=== PATIENT | male | born 1945 | race Caucasian/White ===

== ENCOUNTER 2018-10-17 10:57 | Inpatient (IN) | payer OTHER, BC ==
[2018-10-17 11:06] VITALS: BMI 40.1
--- NOTE | 2018-10-17 11:54 | PDOC ---
History of Present Illness - General Chief Complaint: Cold Symptoms Stated Complaint: COUGHING BLOOD (PCP SENT) Time Seen by Provider: 10/17/18 11:32 History Source: Patient - History of Present Illness Initial Comments: 10/17/18 11:59 The patient is a 73 year old male with a PMH of esophageal CA (s/p endoscopic resection), [place] Cell CA (s/p radiation 3-1/2 years previous) presents to our ED c/o 5 day h/o hemoptysis. C/o associated gurgling. Temperature (101) last night. CXR ordered by PMD (Dr. Thornton on Sunday) showed no active PNA. As patient continued to cough up blood PMD indicated patient should come to the ED. Surgical: endoscopic esophageal CA resection Allergy:Clindamycin (rash), NSAIDs (rash) PMD: Dr. Thornton Past History - Past Medical History Allergies/Adverse Reactions: Allergies Allergy/AdvReac Type Severity Reaction Status Date / Time clindamycin Allergy Verified 03/13/14 11:06 ibuprofen [From Motrin] Allergy Verified 03/13/14 11:10 naproxen sodium [From Aleve] Allergy Verified 03/13/14 11:08 NSAIDS (Non-Steroidal Allergy Verified 03/13/14 11:11 Anti-Inflamma Home Medications: Ambulatory Orders Ca/D3/Mag Ox/Zinc/Malware Analyst/Kartik/Bor [Caltrate 600+D Plus Tab Chew] 1 each PO ASDIR Cholecalciferol (Vitamin D3) [Vitamin D3] 1,000 unit PO DAILY 03/13/14 Fenofibrate 160 mg PO DAILY 03/13/14 Multivit-Min/FA/Lycopene/Lut [Centrum Silver Tablet] 1 each PO DAILY 03/13/14 [place]-3 Acid Ethyl Esters [Lovaza -] 2,000 mg PO BID 03/13/14 Omeprazole [Prilosec (RX)] 20 mg PO BID 03/13/14 Rivaroxaban [Xarelto -] 20 mg PO DAILY 03/13/14 Tramadol HCl 50 mg PO ASDIR 03/13/14 Zolpidem Tartrate 10 mg PO ASDIR 03/13/14 Atorvastatin Ca [Lipitor] 40 mg PO HS 10/17/18 Levothyroxine [Synthroid -] 150 mcg PO DAILY 10/17/18 Metoprolol Succinate [Toprol Xl] 100 mg PO BID 10/17/18 Anemia: No Asthma: No Cancer: Yes (ESOPHAGEAL TUMOR) Cardiac Disorders: Yes CVA: No COPD: No CHF: No Dementia: No Diabetes: No GI Disorders: No Disorders: No HTN: Yes Hypercholesterolemia: Yes Liver Disease: No Seizures: No Thyroid Disease: No - Surgical History Abdominal Surgery: No Appendectomy: No Cardiac Surgery: Yes (ABLATION,CARDIOVERSION) Cholecystectomy: No Lung Surgery: No Neurologic Surgery: No Orthopedic Surgery: Yes (JARETH KNEE SURGERY) - Immunization History Immunization Up to Date: Yes - Suicide/Smoking/Psychosocial Hx Smoking History: Former smoker Have you smoked in the past 12 months: No If you are a former smoker, when did you quit?: 40YRS Information on smoking cessation initiated: No Hx Alcohol Use: No Drug/Substance Use Hx: No Review of Systems - Review of Systems Constitutional: No: Chills, Fever HEENTM: No: Recent change in vision Respiratory: Yes: Hemoptysis. No: Shortness of Breath, Wheezing Cardiac (ROS): No: Chest Pain, Lightheadedness, Palpitations, Syncope ABD/GI: No: Constipated, Diarrhea, Nausea, Vomiting *Physical Exam - Vital Signs Last Vital Signs Temp Pulse Resp BP Pulse Ox 98.1 F 80 16 158/79 96 10/17/18 11:00 10/17/18 11:00 10/17/18 11:00 10/17/18 11:00 10/17/18 11:00 - Physical Exam Comments: 10/17/18 18:41 GENERAL: Awake, alert, and fully oriented, in no acute distress EYES: PERRLA, EOMI, sclera anicteric, conjunctiva clear ENT: Auricles normal inspection, hearing grossly normal, nares patent, oropharynx clear without exudates. Moist mucosa NECK: Normal ROM, supple, no lymphadenopathy, JVD, or masses LUNGS: Breath sounds equal, clear to auscultation bilaterally. No wheezes, and no crackles HEART: Regular rate and rhythm, normal S1 and S2, no murmurs, rubs or gallops ABDOMEN: Soft, nontender, normoactive bowel sounds. No guarding, no rebound. No masses Moderate Sedation - Procedure Monitoring Vital Signs: Procedure Monitoring Vital Signs Temperature 98.1 F 10/17/18 11:00 Pulse Rate 80 01/03/19 11:00 Respiratory Rate 16 10/17/18 11:00 Blood Pressure 158/79 10/17/18 11:00 O2 Sat by Pulse Oximetry (%) 96 10/17/18 11:00 ED Treatment Course - LABORATORY CBC & Chemistry Diagram: 10/17/18 12:15 10/17/18 12:15 Medical Decision Making - Medical Decision Making 10/17/18 12:03 73 year old male with significant PMH of esophageal CA, [place] cell CA presents w/5 day h/o hemoptysis. H/o low grade temperature yesterday. VS unremarkable. Lungs CLTA B/L Frontal diagnosis: PNA, bronchitis, blood vessel , less likely mets, PE, CHF. Will obtain CTA, labs. Reassess 10/17/18 12:41 Cr 0.[address] 10/17/18 17:34 CT shows RUL consolidation Patient reassessed @ bedside VSS Will start on Vanc/Zoysyn, also consider TB in differential given patient's h/o immunocompromise Isolation precautions Case d/w Jeannie Allen NP; Patient admitted to Dr. aGnnon for further evaluation *DC/Admit/Observation/Transfer Diagnosis at time of Disposition: Hemoptysis - Referrals - Patient Instructions - Post Discharge Activity
[2018-10-17 12:20] LABS: BASO % 0.4 % (0-2.0); EOS % 0.1 % (0-4.5); HEMATOCRIT 39.6 % (35.4-49); HEMOGLOBIN 13.6 GM/dL (11.7-16.9); LYMPH % 4.6 % (8-40); MCH 30.6 pg (25.7-33.7); MCHC 34.3 g/dl (32.0-35.9); MEAN CELL VOLUME 89.4 fl (80-96); MEAN PLT VOLUME 8.4 fl (7.5-11.1); MONO % 7.1 % (3.8-10.2); NEUT % 87.8 % (42.8-82.8); PLATELET COUNT 203 K/MM3 (134-434); RBC 4.43 M/mm3 (4.00-5.60); RDW 15.1 % (11.9-15.9); WHITE BLOOD COUNT 10.3 K/mm3 (4.0-10.0)
[2018-10-17 12:31] LABS: INR 1.78 (0.83-1.09); PROTHROMBIN TIME (PATIENT) 21.1 SEC (9.7-13.0)
[2018-10-17 12:33] LABS: ACTIVATED PTT 37.4 SECONDS (25.2-36.5)
[2018-10-17 12:40] LABS: ALBUMIN 2.9 g/dl (3.4-5.0); ALK PHOS 60 U/L (45-117); ANION GAP 8 MMOL/L (8-16); BLOOD UREA NITROGEN 15 mg/dL (7-18); CALCIUM 8.1 mg/dL (8.5-10.1); CHLORIDE 105 mmol/L (98-107); CO2 25 mmol/L (21-32); CREATININE 0.9 mg/dL (0.55-1.3); GLUCOSE,RANDOM 135 mg/dL (74-106); POTASSIUM 3.9 mmol/L (3.5-5.1); SGOT/AST 20 U/L (15-37); SGPT/ALT 17 U/L (13-61); SODIUM 138 mmol/L (136-145); TOT PROT 6.2 g/dl (6.4-8.2)
--- NOTE | 2018-10-17 12:46 | PDOC ---
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 Patient notes he began coughing up bright red blood five days ago. Patient reports associated gurgling with coughing. He notes he followed up with Dr. Thornton 4 days ago, and his chest X-Ray was negative. Patient reports having a 101.5 fever last night, which prompted his visit to the ED. The patient denies chest pain, shortness of breath, headache and dizziness. Denies fever, chills, nausea, vomit, diarrhea and constipation. Denies dysuria, frequency, urgency and hematuria. Allergies: Clindamycin (rash), NSAIDS (rash) Past surgical history: Endoscopic esophageal CA resection Social history: No reported PCP: Dr. Thornton 10/17/18 12:48 - Physicial Exam PE: GENERAL: Awake, alert, and fully oriented, in no acute distress HEAD: No signs of trauma EYES: PERRLA, EOMI, sclera anicteric, conjunctiva clear ENT: Auricles normal inspection, hearing grossly normal, nares patent, oropharynx clear without exudates. Moist mucosa NECK: Normal ROM, supple, no lymphadenopathy, JVD, or masses LUNGS: Breath sounds equal, clear to auscultation bilaterally. No wheezes, and no crackles HEART: Regular rate and rhythm, normal S1 and S2, no murmurs, rubs or gallops ABDOMEN: Soft, nontender, normoactive bowel sounds. No guarding, no rebound. No masses EXTREMITIES: Normal range of motion, no edema. No clubbing or cyanosis. No cords, erythema, or tenderness NEUROLOGICAL: Cranial nerves II through XII grossly intact. Normal speech, normal gait SKIN: Warm, Dry, normal turgor, no rashes or lesions noted. 10/17/18 12:48 - Medical Decision Making EXAM#: TYPE/EXAM: RESULT: [id number] CT/CHEST CT WITH CONTRAST IMPRESSION: Extensive right lung consolidation, most marked within the upper lobe, concerning for acute pneumonia. Clinical correlation and follow-up recommended. Please see above discussion. Reported By: Alfred Zarate MD 10/17/18 14:14 Documentation prepared by DAMIAN Gloria, acting as medical imaging specialist for Doc Kwon MD. 10/17/18 12:48 <Whitney Lomeli - Last Filed: 10/17/18 14:23> - Resident Resident Name: Cathryn Bryant - ED Attending Attestation I have performed the following: I have examined & evaluated the patient, The case was reviewed & discussed with the resident, I agree w/resident's findings & plan, Exceptions are as noted - Medical Decision Making 10/17/18 12:46 A portion of this note was documented by scribe services under my direction. I have reviewed the details of the note, within reason, and agree with the documentation with the following case summary and management plan written by me. Patient treated in the ED. Nursing notes are reviewed and incorporated into the medical decision-making. Vital signs reviewed. Peripheral IV access obtained by the nurse, laboratory studies are drawn and sent, reviewed and interpreted by myself. Vital Signs Temp Pulse Resp BP Pulse Ox 98.1 F 80 16 158/79 96 10/17/18 11:00 10/17/18 11:00 10/17/18 11:00 10/17/18 11:00 10/17/18 11:00 73-year-old male with history of esophageal cancer status post endoscopic resection, [place] cell cancer status post radiation, atrial fibrillation status post ablation currently on xarelto presents with hemoptysis. For approximately 4 days, the patient has had persistent liquidy hemoptysis but no chest pain or shortness of breath or fevers. The patient currently is taking the anticoagulants. Patient did noted temperature 101 degrees last night. The patient's primary care physician has been attempting to manage as an outpatient but eventually convince the patient to come to the ER for CAT scan admission to the hospital. Given his complex medical history, differential close bronchitis, pneumonia, vessel bleeding, malignancy, pulmonary embolism, pulmonary mass, congestive heart failure. We'll obtain labs and a CAT scan the chest and admit the patient to hospital for further outpatient management. Patient's currently breathing with no difficulty. 10/17/18 14:33 CBC, BMP 10/17/18 12:15 10/17/18 12:15 CMP Sodium 138 mmol/L (136-145) 10/17/18 12:15 Potassium 3.9 mmol/L (3.5-5.1) 10/17/18 12:15 Chloride 105 mmol/L (98-107) 10/17/18 12:15 Carbon Dioxide 25 mmol/L (21-32) 10/17/18 12:15 Anion Gap 8 MMOL/L (8-16) 10/17/18 12:15 BUN 15 mg/dL (7-18) 10/17/18 12:15 Creatinine 0.9 mg/dL (0.55-1.3) 10/17/18 12:15 Creat Clearance w eGFR > 60 (>60) 10/17/18 12:15 Random Glucose 135 mg/dL (74-106) H 10/17/18 12:15 Calcium 8.1 mg/dL (8.5-10.1) L 10/17/18 12:15 Total Bilirubin 1.0 mg/dL (0.2-1) 10/17/18 12:15 AST 20 U/L (15-37) 10/17/18 12:15 ALT 17 U/L (13-61) 10/17/18 12:15 Alkaline Phosphatase 60 U/L (45-117) 10/17/18 12:15 Total Protein 6.2 g/dl (6.4-8.2) L 10/17/18 12:15 Albumin 2.9 g/dl (3.4-5.0) L 10/17/18 12:[address] shows Right upper lobe PNA. Will treat with vanc and zosyn. R/o TB. Dr. Martin consulted and is aware of the patient. Admit on TB isolation precautions. <Doc Kwon - Last Filed: 10/17/18 18:09> Heart Score/ECG Review #1 ECG reviewed & interpreted by me at: 14:20 10/17/18 18:09 NSR 67, left axis deviation, no std/laan, normal intervals, QTC 479 msec <Doc Kwon - Last Filed: 10/17/18 18:09>
[2018-10-17] MEDS ORDERED: VANCOMYCIN 1,000 MG in DEXTROSE 5%-WATER - 250 ML IVPB ONE (14:18)
[2018-10-17] MEDS ORDERED: PIPERACILLIN/TAZOB 4.5 GM 4.5 GM in DEXTROSE 5%-WATER 100 ML IVPB ONE (14:19)
--- NOTE | 2018-10-17 15:27 | HP ---
Admitting History and Physical - Primary Care Physician PCP: Vega Thornton - Admission Chief Complaint: hemoptysis History of Present Illness: 73 year old male pmh of HTN,HLD, CAD, dCHF, atrial fibrillation, [place] cell ca s/p xrt/resection, gastric adenocarcinoma s/p resection presents with 5 day history of hemoptysis. Pt reports onset of intermittent productive cough w/ blood tinged sputum since Sunday, pt saw PCP on Sunday, chest xray w/out significant findings at that time. Pt states he was feeling better for a day until the cough recurred. Pt reports continued hemoptysis with accompanying fever,chills, and pleurisy. His temp this am 101f for which he took Tylenol. reports hearing gurgling upper airway sounds. He reports chronic night sweats x 10 years. Pt denies any sick contacts, reports his dog also has cough and has been sick. [place] [facility] [place] and his recent PET scan was neg. He denies any chest pain, sob, lightheadedness, unilateral weakness, dysphagia, dysuria, abdominal pain, n/v/d, recent travel, recent medication change History Source: Patient, Significant Other, Medical Record Limitations to Obtaining History: No Limitations - Past Medical History Cardiovascular: Yes: AFIB, Aneurysm (ascending aorta 3.9cm), CAD, CHF, HTN, Hyperlipdemia Pulmonary: Yes: Other (RLL nodule 8mm, s/p biopsy [place] [facility] Renal/: Yes: Renal Inusuff, BPH Psych: Yes: Anxiety Musculoskeletal: Yes: Chronic low back pain, Osteoarthritis Endocrine: Yes: Hypothyroidism Dermatology: Yes: Melanoma, Other ([place] cell CA s/p xrt, resection) - Past Surgical History Past Surgical History: Yes: Arthrosocopy (left knee), Hernia Repair Additional Past Surgical History: Gastric adenocarcinoma resection [place] cell ca, left chin, resection 02/26 - Smoking History Smoking history: Former smoker Have you smoked in the past 12 months: No If you are a former smoker, when did you quit?: 40YRS - Alcohol/Substance Use Hx Alcohol Use: Yes Number of Drinks Daily: 3 (gin) History of Substance Use: reports: None - Social History Usual Living Arrangement: Yes: With Spouse ADL: Independent History of Recent Travel: No Home Medications - Allergies Allergies/Adverse Reactions: Allergies Allergy/AdvReac Type Severity Reaction Status Date / Time clindamycin Allergy Verified 03/13/14 11:06 ibuprofen [From Motrin] Allergy Verified 03/13/14 11:10 naproxen sodium [From Aleve] Allergy Verified 03/13/14 11:08 NSAIDS (Non-Steroidal Allergy Verified 03/13/14 11:11 Anti-Inflamma - Home Medications Home Medications: Ambulatory Orders Ca/D3/Mag Ox/Zinc/Bun Panner/Kartik/Bor [Caltrate 600+D Plus Tab Chew] 1 each PO ASDIR Cholecalciferol (Vitamin D3) [Vitamin D3] 1,000 unit PO DAILY 03/13/14 Fenofibrate 160 mg PO DAILY 03/13/14 Multivit-Min/FA/Lycopene/Lut [Centrum Silver Tablet] 1 each PO DAILY 03/13/14 [place]-3 Acid Ethyl Esters [Lovaza -] 2,000 mg PO BID 03/13/14 Omeprazole [Prilosec (RX)] 20 mg PO BID 03/13/14 Rivaroxaban [Xarelto -] 20 mg PO DAILY 03/13/14 Tramadol HCl 50 mg PO ASDIR 03/13/14 Zolpidem Tartrate 10 mg PO ASDIR 03/13/14 Atorvastatin Ca [Lipitor] 40 mg PO HS 10/17/18 Levothyroxine [Synthroid -] 150 mcg PO DAILY 10/17/18 Metoprolol Succinate [Toprol Xl] 100 mg PO BID 10/17/18 Family Disease History - Family Disease History Family Disease History: Heart Disease: Father (chf, ), CA: Mother ( melanoma, ), Sister (esophageal ca ) Review of Systems Findings/Remarks: as per hpi Physical Examination Vital Signs: Vital Signs Temperature 98.1 F 10/17/18 11:00 Pulse Rate 80 10/17/18 11:00 Respiratory Rate 16 10/17/18 11:00 Blood Pressure 158/79 10/17/18 11:00 O2 Sat by Pulse Oximetry (%) 96 10/17/18 11:00 Labs: CBC, BMP 10/17/18 12:15 10/17/18 12:15 Imaging - Results Cat Scan: Report Reviewed, Image Reviewed Problem List - Problems (1) Pneumonia Assessment/Plan: extensive right multilobar pna, community acquired presents w/ hemoptysis, fever, chills, pleurisy wbc 10k hemodynamically stable sputum/blood cultures pending r/o TB- quantiferon/sputum afb ordered suspicious for possible aspiration- speech eval ordered vanco/zosyn ID following Code(s): J18.9 - PNEUMONIA, UNSPECIFIED ORGANISM Qualifiers: Pneumonia type: due to unspecified organism Laterality: right Lung location: unspecified part of lung Qualified Code(s): J18.9 - Pneumonia, unspecified organism (2) Hemoptysis Assessment/Plan: suspect 2/2 pna hold xarelto for now Code(s): R04.2 - HEMOPTYSIS (3) Leukocytosis Assessment/Plan: as above trend Code(s): D72.829 - ELEVATED WHITE BLOOD CELL COUNT, UNSPECIFIED (4) Atrial fibrillation Assessment/Plan: s/p multiple ablations in SR here continue metoprolol hold xarelto Code(s): I48.91 - UNSPECIFIED ATRIAL FIBRILLATION Qualifiers: Atrial fibrillation type: paroxysmal Qualified Code(s): I48.0 - Paroxysmal atrial fibrillation (5) CHF (congestive heart failure) Assessment/Plan: appears euvolemic bnp pending low na diet adequate bp control outpt cardiac f/u Code(s): I50.9 - HEART FAILURE, UNSPECIFIED Qualifiers: Heart failure type: diastolic Heart failure chronicity: chronic Qualified Code(s): I50.32 - Chronic diastolic (congestive) heart failure (6) HTN (hypertension) Assessment/Plan: controlled continue metoprolol Code(s): I10 - ESSENTIAL (PRIMARY) HYPERTENSION Qualifiers: Hypertension type: essential hypertension Qualified Code(s): I10 - Essential (primary) hypertension (7) Hypothyroid Assessment/Plan: stable continue synthroid Code(s): E03.9 - HYPOTHYROIDISM, UNSPECIFIED (8) History of aortic aneurysm Assessment/Plan: ascending aorta 3.9cm, stable monitored by cardiology outpt Code(s): Z86.79 - PERSONAL HISTORY OF OTHER DISEASES OF THE CIRCULATORY SYSTEM
[2018-10-17] MEDS ORDERED: PIPERACILLIN/TAZOB 4.5 GM 4.5 GM/100 ML BAG IVPB ONE (15:31)
[2018-10-17] MEDS ORDERED: VANCOMYCIN 1 GRAM (PRE-DOCKED) 1,000 MG/250 ML BAG IVPB ONE (15:31)
--- NOTE | 2018-10-17 16:13 | EKG ---
Test Reason : Blood Pressure : / mmHG Vent. Rate : 067 BPM Atrial Rate : 067 BPM P-R Int : 180 ms QRS Dur : 088 ms QT Int : 454 ms P-R-T Axes : 021 -32 030 degrees QTc Int : 479 ms NORMAL SINUS RHYTHM LEFT AXIS DEVIATION ABNORMAL ECG WHEN COMPARED WITH ECG OF 20-MAR-2017 10:50, VENT. RATE HAS DECREASED BY 70 BPM Confirmed by JULI VAIL, LAURA ([id number]) on 10/17/2018 4:13:02 PM Referred By: Confirmed By:LAURA BUSTOS MD
--- NOTE | 2018-10-17 16:18 | PN ---
Progress Note (short form) - Note Progress Note: ID CONSULT DICTATED 73 Y/O MALE ADMITTED WITH [address]D H[address] CHEST MULTILOBAR PNEUMONIA ( RUL/RML/RLL) NO KNOWN TB EXPOSURE WILL ISOLATE, OBTAIN QUANTIFERON, SPUTUM AFB ROUTINE C/S, CYTOLOGY EMPIRIC ZOSYN/ VANCOMYCIN
--- NOTE | 2018-10-17 16:41 | CONS ---
INFECTIOUS DISEASE CONSULTATION DATE OF CONSULTATION: DATE OF DICTATION: 10/17/2018 HISTORY OF PRESENT ILLNESS: The patient is a 73-year-old male evaluated for hemoptysis and pneumonia. The patient reports he was well until Saturday, October 13, 2018. He had attended a democrat. Upon returning home he developed slight hemoptysis. He saw his primary care physician the following day. A chest x-ray was performed and was negative for infiltrate. He symptomatically improved; however, developed recurrent candace hemoptysis. Over the past 24 hours he developed fever to 101.5, prompting his visit to the emergency room. In the emergency room CAT scan of the chest was performed that showed multilobar pneumonia including right upper lobe, right middle lobe and right lower lobe. The patient is a former smoker, stopped 40 years ago. He denies any ill contacts or significant travel history. He has a history of esophageal cancer and [place] cell cancer; however, has not received chemotherapy and has not received treatment for years. No known TB exposure. PAST MEDICAL HISTORY: Positive for esophageal cancer which was endoscopically resected 6 years ago. No radiation or chemotherapy was given. 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 Atrial fibrillation on Xarelto status post multiple cardioversions and ablations. PAST SURGICAL HISTORY: Status post bilateral knee surgery. ALLERGIES: CLINDAMYCIN and IBUPROFEN (rash). MEDICATIONS: Norvasc, Lipitor, fenofibrate, hydrochlorothiazide, Toprol. SOCIAL HISTORY: He lives at home with his , grew up in [place]. No significant foreign travel. Former smoker, stopped 40 years ago. No known TB exposure. His parents were both from [place]; however, no family history of tuberculosis. 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 HIV status not known. SYSTEMS REVIEW: Neurologic: No loss of consciousness, seizure activity, focal weakness. Cardiac: Negative chest pain or palpitations. Respiratory: As per HPI. Gastrointestinal: Negative vomiting or diarrhea. Genitourinary: Negative urinary tract infection. LABORATORY DATA: White count 10.3, hematocrit 39.6, platelet count 203. BUN 15, creatinine 0.9. PHYSICAL EXAMINATION:General: He is awake and alert. He is in no acute distress, breathing is nonlabored. Vital Signs: Temperature 98.1, blood pressure 158/79, pulse 80, regular, respirations 16 per minute. HEENT: Sclerae are anicteric. Surgical scar is present on the left face and left mandibular area. Heart: Sounds S1, S2. Lungs: Clear bilaterally. No rhonchi, rales or wheezing. Abdomen: Soft, nontender. Extremities: Negative for edema. IMPRESSION: A 73-year-old male admitted with a 5-day history of candace hemoptysis, CAT showing multilobar pneumonia involving right upper lobe, right middle lobe and right lower lobe. PLAN: Await culture results. Obtain sputum culture and sputum cytology. Despite lack of TB exposure will isolate, obtain QuantiFERON, sputum for AFB and AFB PCR. Empiric antibiotic coverage with vancomycin and Zosyn. Case discussed with patient's present at the time of examination. Thank you for your kind referral. DAYA RASHEED M.D. [id number]
[2018-10-17] MEDS ORDERED: traMADol HCL 50 MG TABLET PO PRN (17:40)
[2018-10-17] MEDS ORDERED: PIPERACILLIN/TAZOB 4.5 GM 4.5 GM in DEXTROSE 5%-WATER 100 ML IVPB SCH (20:00)
[2018-10-17] MEDS ORDERED: DEXTROSE 5%-WATER 100 ML IVPB ONE (21:32)
[2018-10-17] MEDS ORDERED: PIPERACILLIN/TAZOBACTAM 4.5 GM VIAL IVPB ONE (21:32)
[2018-10-17] MEDS: ATORVASTATIN CA 40 MG TABLET (FP) PO SCH (21:52)
[2018-10-17] MEDS: PIPERACILLIN/TAZOB 4.5 GM 4.5 GM in DEXTROSE 5%-WATER 100 ML IVPB SCH (21:52)
[2018-10-18] MEDS ORDERED: PIPERACILLIN/TAZOBACTAM 4.5 GM VIAL IVPB ONE ×3 (03:56→17:41)
[2018-10-18] MEDS ORDERED: DEXTROSE 5%-WATER 100 ML IVPB ONE ×3 (03:56→17:41)
[2018-10-18] MEDS: PIPERACILLIN/TAZOB 4.5 GM 4.5 GM in DEXTROSE 5%-WATER 100 ML IVPB SCH ×3 (04:03→17:51)
[2018-10-18] MEDS: VANCOMYCIN 1 GRAM (PRE-DOCKED) 1,000 MG/250 ML BAG IVPB SCH ×2 (05:29→15:51)
[2018-10-18] MEDS: LEVOTHYROXINE NA 150 MCG TABLET PO SCH (06:51)
[2018-10-18 07:11] LABS: BASO % 0.7 % (0-2.0); EOS % 0.8 % (0-4.5); HEMATOCRIT 36.5 % (35.4-49); HEMOGLOBIN 11.6 GM/dL (11.7-16.9); LYMPH % 10.2 % (8-40); MCH 28.9 pg (25.7-33.7); MCHC 31.8 g/dl (32.0-35.9); MEAN PLT VOLUME 8.5 fl (7.5-11.1); MONO % 8.9 % (3.8-10.2); NEUT % 79.4 % (42.8-82.8); PLATELET COUNT 165 K/MM3 (134-434); RBC 4.01 M/mm3 (4.00-5.60); RDW 14.9 % (11.9-15.9); WHITE BLOOD COUNT 6.8 K/mm3 (4.0-10.0)
[2018-10-18 07:38] LABS: ANION GAP 8 MMOL/L (8-16); BLOOD UREA NITROGEN 13 mg/dL (7-18); CALCIUM 7.8 mg/dL (8.5-10.1); CHLORIDE 105 mmol/L (98-107); CO2 25 mmol/L (21-32); CREATININE 0.9 mg/dL (0.55-1.3); GLUCOSE,RANDOM 113 mg/dL (74-106); POTASSIUM 3.1 mmol/L (3.5-5.1); SODIUM 138 mmol/L (136-145)
[2018-10-18] MEDS ORDERED: PT OWN MED DRAWER 7, Y5N ONE (08:44)
[2018-10-18] MEDS: LACTOBACILLUS ACIDOPHILUS 1 TABLET PO SCH (10:29)
--- NOTE | 2018-10-18 11:49 | PN ---
Progress Note (short form) - Note Progress Note: PULMONARY CONSULATATION DICTATED 10/18/17 IMP RUL/RLL PNEUMONIA COMMUNITY ACQUIRED HEMOPTYSIS H/O JERAMY CELL CA S/P RESECTION/RT H/O ESOPHAGEAL CA S/P RESECTION AFIB S/P ABLATION ASHD HLD DIASTOLIC HF PLAN IV ABX O2 CULTURES INHALED BRONCHODILATORS URINARY ANTIGENS AC QUANTIFY HEMOPTYSIS F/U CHEST CT 4-6 WKS TO CONFIRM RESOLUTION OF INFILTRATES DR OWEN Problem List - Problems (1) Atrial fibrillation Code(s): I48.91 - UNSPECIFIED ATRIAL FIBRILLATION Qualifiers: Atrial fibrillation type: paroxysmal Qualified Code(s): I48.0 - Paroxysmal atrial fibrillation (2) HTN (hypertension) Code(s): I10 - ESSENTIAL (PRIMARY) HYPERTENSION Qualifiers: Hypertension type: essential hypertension Qualified Code(s): I10 - Essential (primary) hypertension (3) Hemoptysis Code(s): R04.2 - HEMOPTYSIS (4) History of aortic aneurysm Code(s): Z86.79 - PERSONAL HISTORY OF OTHER DISEASES OF THE CIRCULATORY SYSTEM (5) Hypothyroid Code(s): E03.9 - HYPOTHYROIDISM, UNSPECIFIED (6) Multilobar lung infiltrate Code(s): R91.8 - OTHER NONSPECIFIC ABNORMAL FINDING OF LUNG FIELD (7) Pneumonia Code(s): J18.9 - PNEUMONIA, UNSPECIFIED ORGANISM Qualifiers: Pneumonia type: due to unspecified organism Laterality: right Lung location: unspecified part of lung Qualified Code(s): J18.9 - Pneumonia, unspecified organism
--- NOTE | 2018-10-18 12:30 | CONS ---
DATE OF CONSULTATION: 10/18/2018 REFERRING PHYSICIAN: MONICA Alex HISTORY: The patient is a 73-year-old white male with past medical history that includes Afib, diastolic heart failure, ASHD, hypertension, hyperlipidemia, history of [place] cell cancer status post radiation and resection, esophageal carcinoma status post resection admitted to [facility] with the complaint of a history of hemoptysis. The patient states he was doing well until Sunday prior to this admission. At that time, he started coughing up bright red blood. He denies any chest pain, shortness of breath, or fever at the time. He went to his PMD's office with the above complaints. He had a chest x-ray performed, which was normal. He was doing well until Sunday day prior to admission he started developing fevers up to 101.5 associated with cough, shortness of breath, and chills. He presented to the emergency room with the above. In the ER, he had a chest CT performed, which revealed right upper lobe and right lower lobe pneumonia. He was admitted to the floor. He was started on broad-spectrum antibiotics. The patient denies any recent travel. He has a pet dog at home and states has been ill with bronchitis. He denies any history of occupational exposure to chemicals or fumes. He has a history of smoking. Quit greater than 40 years ago. There is no history of respiratory failure in the past requiring ventilatory support. There is no previous history of pneumonia . PAST MEDICAL HISTORY: Again includes atrial fibrillation, diastolic heart failure, ASHD, hypertension, hyperlipidemia, [place] cell cancer status post XRT and resection, esophageal cancer status post resection. REVIEW OF SYSTEMS: Positive hemoptysis. Positive mild shortness of breath with exertion. No chest pain, no palpitations. Positive fever, positive chills. No abdominal pain, no lower extremity edema. CURRENT MEDICATIONS: Include Tylenol, Zosyn, vancomycin, Bacid, Toprol, Lipitor , Synthroid. PHYSICAL EXAMINATION: General: The patient is a well-developed, well-nourished male awake and alert in no acute distress. Vital Signs: He is currently afebrile. Blood pressure 116/74, respiratory rate 20, O2 saturation is 97% on room air. HEENT: Normocephalic and atraumatic. Neck: Supple. Heart: Regular S1, S2. Chest: A few crackles on the right. Abdomen: Soft. Bowel sounds positive. Extremities: No cyanosis or edema. LABORATORIES: WBC 6.8, hemoglobin 11.6, hematocrit 36.5 with a platelet count of 165,000, INR 1.78, potassium 3.1. Chest CT as noted. IMPRESSION: 1. Right upper and lower lobe pneumonia consistent with community-acquired pneumonia. 2. History of [place] cell cancer status post resection and radiation therapy. 3. History of esophageal cancer status post resection. 4. Diastolic heart failure. 5. Arteriosclerotic heart disease. 6. Hemoptysis. PLAN: Continue IV antibiotics. Inhaled bronchodilators. Supplemental O2 as needed. Sputum for culture and sensitivity. Quantify hemoptysis. Also obtain follow up chest x-ray as well as follow up CT scan of the chest in 4-6 weeks to document resolution of infiltrates. KATHARINA OWEN M.D. [id number] MTDD
[2018-10-18] MEDS ORDERED: PATIENT'S OWN MEDICATION (NON-FORMULARY) (Zolpidem Tartrate [Zolpidem Tartrate] 10 MG) PO PRN (13:04)
--- NOTE | 2018-10-18 13:04 | PN ---
Progress Note, Physician Chief Complaint: Pt sitting in bed in no acute distress. reports feeling better. cough improved, hemoptysis improving. Denies any chest pain, sob, n/v/d - Current Medication List Current Medications: Active Medications Acetaminophen (Tylenol -) 650 mg PO Q6H PRN PRN Reason: FEVER Atorvastatin Calcium (Lipitor -) 40 mg PO HS [facility] Last Admin: 10/17/18 21:52 Dose: 40 mg Vancomycin HCl (Vancomycin (Pre-Docked)) 1,000 mg in 250 mls @ 166.667 mls/hr IVPB Q12H [facility]; Protocol Last Admin: 10/18/18 05:29 Dose: 166.667 mls/hr Piperacillin Sod/Tazobactam (Sod 4.5 gm/ Dextrose) 100 mls @ 200 mls/hr IVPB Q8H-IV [facility]; Protocol Last Admin: 10/18/18 10:29 Dose: 200 mls/hr Lactobacillus Acidophilus (Bacid -) 1 tab PO DAILY [facility] Last Admin: 10/18/18 10:29 Dose: 1 tab Levothyroxine Sodium (Synthroid -) 150 mcg PO 0700 [facility] Last Admin: 10/18/18 06:51 Dose: 150 mcg Metoprolol Succinate (Toprol Xl -) 100 mg PO BID [facility] Last Admin: 10/18/18 10:29 Dose: 100 mg Potassium Chloride (Potassium Chloride Oral Liquid) 40 meq PO BID [facility] Tramadol HCl (Ultram -) 50 mg PO Q8H PRN PRN Reason: PAIN LEVEL 6-10 - Objective Vital Signs: Vital Signs Temperature 98 F 10/18/18 10:00 Pulse Rate 85 10/18/18 10:00 Respiratory Rate 20 10/18/18 10:00 Blood Pressure 116/74 10/18/18 10:00 O2 Sat by Pulse Oximetry (%) 96 10/17/18 22:00 Constitutional: Yes: Well Nourished, No Distress, Calm Cardiovascular: Yes: Regular Rate and Rhythm. No: Murmur Respiratory: Yes: Regular, Cough, Diminished (RLL). No: Accessory Muscle Use, SOB, Tachypnea, Wheezes Gastrointestinal: Yes: WNL, Normal Bowel Sounds, Soft. No: Distention, Tenderness Genitourinary: Yes: WNL Extremities: Yes: WNL Edema: No Neurological: Yes: WNL, Alert, Oriented Psychiatric: Yes: WNL, Alert, Oriented Labs: CBC, BMP 10/18/18 05:20 10/18/18 05:20 INR, PTT INR 1.78 (0.83-1.09) H 10/17/18 12:15 Assessment/Plan (1) Pneumonia Assessment/Plan: extensive right multilobar pna, community acquired hemoptysis improved hemodynamically stable sputum/blood cultures pending r/o TB- quantiferon/sputum afb pending urine legionella ordered suspicious for possible aspiration- speech eval pending vanco/zosyn day 2 ID following Code(s): J18.9 - PNEUMONIA, UNSPECIFIED ORGANISM Qualifiers: Pneumonia type: due to unspecified organism Laterality: right Lung location: unspecified part of lung Qualified Code(s): J18.9 - Pneumonia, unspecified organism (2) Hemoptysis Assessment/Plan: improved suspect 2/2 pna resume xarelto Code(s): R04.2 - HEMOPTYSIS (3) Leukocytosis Assessment/Plan: as above trend Code(s): D72.829 - ELEVATED WHITE BLOOD CELL COUNT, UNSPECIFIED (4) Atrial fibrillation Assessment/Plan: s/p multiple ablations in SR here continue metoprolol, xarelto Code(s): I48.91 - UNSPECIFIED ATRIAL FIBRILLATION Qualifiers: Atrial fibrillation type: paroxysmal Qualified Code(s): I48.0 - Paroxysmal atrial fibrillation (5) CHF (congestive heart failure) Assessment/Plan: appears euvolemic low na diet adequate bp control outpt cardiac f/u Code(s): I50.9 - HEART FAILURE, UNSPECIFIED Qualifiers: Heart failure type: diastolic Heart failure chronicity: chronic Qualified Code(s): I50.32 - Chronic diastolic (congestive) heart failure (6) HTN (hypertension) Assessment/Plan: controlled continue metoprolol Code(s): I10 - ESSENTIAL (PRIMARY) HYPERTENSION Qualifiers: Hypertension type: essential hypertension Qualified Code(s): I10 - Essential (primary) hypertension (7) Hypothyroid Assessment/Plan: stable continue synthroid Code(s): E03.9 - HYPOTHYROIDISM, UNSPECIFIED (8) History of aortic aneurysm Assessment/Plan: ascending aorta 3.9cm, stable monitored by cardiology outpt Code(s): Z86.79 - PERSONAL HISTORY OF OTHER DISEASES OF THE CIRCULATORY SYSTEM (7) Hypokalemia Assessment/Plan: k level 3 suspect 2/2 reduced po intake kcl 40meq bid scheduled monitor [facility] Code(s): E87.6 - HYPOKALEMIA Dispo: Home
[2018-10-18] MEDS: POTASSIUM CHLORIDE ORAL LIQUID 20 MEQ/15 ML PO SCH ×2 (15:49→22:16)
--- NOTE | 2018-10-18 16:10 | PN ---
Progress Note, Physician History of Present Illness: Seated in bed Reports less hemoptysis No c/o chest pain/ dyspnea No c/o fever/ chills WBC WNL Sputum AFB (-) x1 - Current Medication List Current Medications: Active Medications Acetaminophen (Tylenol -) 650 mg PO Q6H PRN PRN Reason: FEVER Atorvastatin Calcium (Lipitor -) 40 mg PO HS [facility] Last Admin: 10/17/18 21:52 Dose: 40 mg Vancomycin HCl (Vancomycin (Pre-Docked)) 1,000 mg in 250 mls @ 166.667 mls/hr IVPB Q12H [facility]; Protocol Last Admin: 10/18/18 15:51 Dose: 166.667 mls/hr Piperacillin Sod/Tazobactam (Sod 4.5 gm/ Dextrose) 100 mls @ 200 mls/hr IVPB Q8H-IV [facility]; Protocol Last Admin: 10/18/18 10:29 Dose: 200 mls/hr Lactobacillus Acidophilus (Bacid -) 1 tab PO DAILY [facility] Last Admin: 10/18/18 10:29 Dose: 1 tab Levothyroxine Sodium (Synthroid -) 150 mcg PO 0700 [facility] Last Admin: 10/18/18 06:51 Dose: 150 mcg Metoprolol Succinate (Toprol Xl -) 100 mg PO BID [facility] Last Admin: 10/18/18 10:29 Dose: 100 mg Potassium Chloride (Potassium Chloride Oral Liquid) 40 meq PO BID [facility] Last Admin: 10/18/18 15:49 Dose: 40 meq Rivaroxaban (Xarelto -) 20 mg PO DAILY@1800 [facility] Tramadol HCl (Ultram -) 50 mg PO Q8H PRN PRN Reason: PAIN LEVEL 6-10 Zolpidem Tartrate (Ambien -) 5 mg PO HS PRN PRN Reason: INSOMNIA - Objective Vital Signs: Vital Signs Temperature 98.2 F 10/18/18 13:46 Pulse Rate 68 10/18/18 13:46 Respiratory Rate 20 10/18/18 13:46 Blood Pressure 154/78 10/18/18 13:46 O2 Sat by Pulse Oximetry (%) 96 10/18/18 09:00 Constitutional: Yes: No Distress Cardiovascular: Yes: Regular Rate and Rhythm, S1, S2 Respiratory: Yes: Rhonchi Gastrointestinal: Yes: Normal Bowel Sounds, Soft. No: Tenderness Edema: No Labs: CBC, BMP 10/18/18 05:20 10/18/18 05:20 INR, PTT INR 1.78 (0.83-1.09) H 10/17/18 12:15 Assessment/Plan Multilobar pneumonia Hemoptysis Await sputum AFB/ PCR, sputum c/s Continue empiric zosyn/ vancomycin Discussed with patient's at bedside
--- NOTE | 2018-10-18 16:30 | CONSULT ---
Admitting History and Physical - Primary Care Physician PCP: Jeannie Allen - Admission History of Present Illness: Per EMR: The patient is a 73 year old male, with a significant PMH of esophageal cancer ( s/p endoscopic resection), [place] Cell cancer (s/p radiation 3.5 years ago), and A-Fib (s/p ablation on Xarelto), who presents to the emergency department today complaining of hemoptysis for 5 days, and associated fever (101.5) for one day. Patient notes he began coughing up bright red blood five days ago. Patient reports associated gurgling with coughing. CT CHEST MULTILOBAR PNEUMONIA ( RUL/RML/RLL) Selected Entries 10/18/18 10/18/18 10/18/18 02:00 05:38 10:00 Breakfast Diet Tolerated Lunch Temperature 97.8 F 98.1 F 98 F 10/18/18 10/18/18 10/18/18 11:32 12:37 13:46 Breakfast 100% Diet Tolerated Well Lunch 100% Temperature 98.2 F Laboratory Tests 10/17/18 10/18/18 12:15 05:20 WBC 10.3 H 6.8 History Source: Patient, Family Member Limitations to Obtaining History: No Limitations - Past Medical History Cardiovascular: Yes: AFIB, Aneurysm (ascending aorta 3.9cm), CAD, CHF, HTN, Hyperlipdemia Pulmonary: Yes: Other (RLL nodule 8mm, s/p biopsy at [facility]) Renal/: Yes: Renal Inusuff, BPH Psych: Yes: Anxiety Musculoskeletal: Yes: Chronic low back pain, Osteoarthritis Endocrine: Yes: Hypothyroidism Dermatology: Yes: Melanoma, Other ([place] cell CA s/p xrt, resection) - Past Surgical History Past Surgical History: Yes: Arthrosocopy (left knee), Hernia Repair Additional Past Surgical History: 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, left chin, resection 02/26 - Smoking History Smoking history: Former smoker Have you smoked in the past 12 months: No If you are a former smoker, when did you quit?: 40YRS - Alcohol/Substance Use Hx Alcohol Use: Yes Number of Drinks Daily: 3 (gin) History of Substance Use: reports: None - Social History ADL: Independent History of Recent Travel: No History - Admission Reason For Visit: HEMOPTYSIS; TUBERCULOSIS - Diagnostics X-ray: Report Reviewed - General Mental Status: Alert and Oriented, Awake and Alert, Able to Follow Commands Attention: Intact Ability to Follow Directions: Excellent Head/Neck Control: WFL - Hearing Hearing: Normal Speech Evaluation - Communication Primary Language: [id number] Communication: Yes: Within Normal Limits Oral Expression Ability: Yes: No Impairment - Speech Production Able to Make Needs Known: Yes: WNL Intelligibility: Yes: WNL - Speech Characteristics Voice Loudness: Normal Voice Pitch: Yes: Normal Voice Phonatory-based Quality: Yes: Normal Speech Pattern: Normal Speech Clarity: < 100% Nasal Resonance: Normal Articulation: Yes: Precise Rate of Speech: Intact - Language/Auditory Comprehension Follows: Yes: 2 Stage Simple Commands - Language/Verbal Expression Able to Respond to Simple Queries: Yes: WNL Able to Communicate Wants and Needs: Yes: WNL Functional Communication Status: Yes: WNL - Memory/Perception terminal supervisor Memory: Yes: WNL Short Term Memory: Yes: WNL - Swallow Evaluation/Bedside Assessment Current Nutritional Intake: Regular, Thin Liquids Oral Secretions: Yes: WFL Dentition: Yes: Adequate Facial Symmetry at Rest: Symmetrical Sensation: Normal Against Resistance Opening: Normal Against Resistance Closing: Normal Pucker Lips: Normal Smile: Normal Lingual Movement: Normal, Symmetric Lingual Speed of Movement: Normal Lingual Movement Strgth Against Opposition: Normal Lingual Movement Characteristics: Normal Velopharyngeal Movement: Normal Laryngeal Elevation: WFL Laryngeal Movement: Able to Palpate Rate of Intake: WFL Bolus Size: WFL Labial Seal: WFL Chewing: WFL Oral Prep Time: WFL A-P Transit: WFL Timing of Swallow: WFL Coughing/Throat Clear: No Change in Voice: No Recommendations - Speech Evaluation, Impression/Plan Impression: Pt followed at [facility]. Had RT to head/neck region. Hard areas under mandible/neck area which pt reports as "scar tissue" from RT. Pt denies any symptoms of dysphagia. Voice is euphonic. - Disposition Discharge to: Home Alone - Dysphagia Impressions/Plan Swallowing Skills: WF Dysphagia Impressions: No Impairment *Silent aspiration: cannot be R/O at bedside Dysphagia Treatment Plan: Swallowing Exercises (Important to perform swallowing exercises to prevent adverse after affect of RT to swallowing function.Hand out given.Counseled pt and on obtaining a couple of sessions of swallowing tx. They said they will call [facility]) - Recommendations Diet Consistency: Regular Medication Administration: Whole with water Liquids: Thin Liquids
[2018-10-18] MEDS: ACETAMINOPHEN 325 MG TABLET (FP) PO PRN (18:00)
[2018-10-18] MEDS ORDERED: ZOLPIDEM TARTRATE 5 MG TABLET PO PRN (22:00)
[2018-10-18] MEDS: ATORVASTATIN CA 40 MG TABLET (FP) PO SCH (22:16)
[2018-10-19] MEDS: PIPERACILLIN/TAZOB 4.5 GM 4.5 GM in DEXTROSE 5%-WATER 100 ML IVPB SCH ×3 (03:15→17:35)
[2018-10-19] MEDS ORDERED: DEXTROSE 5%-WATER 100 ML IVPB ONE ×3 (03:29→16:45)
[2018-10-19] MEDS ORDERED: PIPERACILLIN/TAZOBACTAM 4.5 GM VIAL IVPB ONE ×3 (03:29→16:45)
[2018-10-19] MEDS: VANCOMYCIN 1 GRAM (PRE-DOCKED) 1,000 MG/250 ML BAG IVPB SCH ×2 (04:56→16:52)
[2018-10-19] MEDS: LEVOTHYROXINE NA 150 MCG TABLET PO SCH (06:41)
[2018-10-19 07:39] LABS: BASO % 0.6 % (0-2.0); EOS % 1.9 % (0-4.5); HEMATOCRIT 38.9 % (35.4-49); HEMOGLOBIN 12.3 GM/dL (11.7-16.9); LYMPH % 15.5 % (8-40); MCH 28.7 pg (25.7-33.7); MCHC 31.5 g/dl (32.0-35.9); MEAN CELL VOLUME 91.1 fl (80-96); MEAN PLT VOLUME 8.3 fl (7.5-11.1); MONO % 8.6 % (3.8-10.2); NEUT % 73.4 % (42.8-82.8); PLATELET COUNT 189 K/MM3 (134-434); RBC 4.27 M/mm3 (4.00-5.60); RDW 15.1 % (11.9-15.9)
[2018-10-19 08:17] LABS: ANION GAP 7 MMOL/L (8-16); BLOOD UREA NITROGEN 8 mg/dL (7-18); CALCIUM 8.6 mg/dL (8.5-10.1); CHLORIDE 106 mmol/L (98-107); CO2 24 mmol/L (21-32); GLUCOSE,RANDOM 121 mg/dL (74-106); SODIUM 137 mmol/L (136-145)
[2018-10-19] MEDS: POTASSIUM CHLORIDE ORAL LIQUID 20 MEQ/15 ML PO SCH (09:55)
[2018-10-19] MEDS: LACTOBACILLUS ACIDOPHILUS 1 TABLET PO SCH (09:55)
[2018-10-19 11:46] LABS: ANISOCYTOSIS 2+; MACROCYTOSIS 0; OVALOCYTE 1+; PLATELET ESTIMATE NORMAL; TEAR DROP CELLS 2+
--- NOTE | 2018-10-19 13:42 | PN ---
Progress Note (short form) - Note Progress Note: Breathing continues to improve. Cough is much better. No hemoptysis overnight. Intake & Output 10/16/18 10/17/18 10/18/18 10/19/18 23:59 23:59 23:59 23:59 Intake Total 910 370 Balance 910 370 Weight 280 lb Last Vital Signs Temp Pulse Resp BP Pulse Ox 98.6 F 79 20 118/59 L 97 10/19/18 09:00 10/19/18 09:00 10/19/18 09:00 10/19/18 09:00 10/19/18 09:00 Active Medications Acetaminophen (Tylenol -) 650 mg PO Q6H PRN PRN Reason: FEVER Last Admin: 10/18/18 18:00 Dose: 650 mg Atorvastatin Calcium (Lipitor -) 40 mg PO HS [facility] Last Admin: 10/18/18 22:16 Dose: 40 mg Vancomycin HCl (Vancomycin (Pre-Docked)) 1,000 mg in 250 mls @ 166.667 mls/hr IVPB Q12H [facility]; Protocol Last Admin: 10/19/18 04:56 Dose: 166.667 mls/hr Piperacillin Sod/Tazobactam (Sod 4.5 gm/ Dextrose) 100 mls @ 200 mls/hr IVPB Q8H-IV [facility]; Protocol Last Admin: 10/19/18 09:53 Dose: 200 mls/hr Lactobacillus Acidophilus (Bacid -) 1 tab PO DAILY [facility] Last Admin: 10/19/18 09:55 Dose: 1 tab Levothyroxine Sodium (Synthroid -) 150 mcg PO 0700 [facility] Last Admin: 10/19/18 06:41 Dose: 150 mcg Metoprolol Succinate (Toprol Xl -) 100 mg PO BID [facility] Last Admin: 10/19/18 09:55 Dose: 100 mg Potassium Chloride (Potassium Chloride Oral Liquid) 40 meq PO BID [facility] Last Admin: 10/19/18 09:55 Dose: 40 meq Rivaroxaban (Xarelto -) 20 mg PO DAILY@1800 [facility] Tramadol HCl (Ultram -) 50 mg PO Q8H PRN PRN Reason: PAIN LEVEL 6-10 Zolpidem Tartrate (Ambien -) 5 mg PO HS PRN PRN Reason: INSOMNIA Constitutional: Yes: NAD Cardiovascular: Yes: Regular Rate and Rhythm. No: Murmur Respiratory: Yes: Cough, coarse rhonchi Right > left. No: Accessory Muscle Use , SOB, Tachypnea, Wheezes Gastrointestinal: Yes: WNL, Normal Bowel Sounds, Soft. No: Distention, Tenderness Genitourinary: Yes: WNL Extremities: Yes: WNL Edema: No Neurological: Yes: WNL, Alert, Oriented Psychiatric: Yes: WNL, Alert, Oriented Labs: Laboratory Results - last 24 hr 10/19/18 10/19/18 06:10 06:10 WBC 6.0 RBC 4.27 Hgb 12.3 Hct 38.9 MCV 91.1 MCH 28.7 MCHC 31.5 L RDW 15.1 Plt Count 189 MPV 8.3 Absolute Neuts (auto) 4.4 Neutrophils % 73.4 Neutrophils % (Manual) 81.6 Band Neutrophils % 1.0 Lymphocytes % 15.5 D Lymphocytes % (Manual) 7.2 L Monocytes % 8.6 Monocytes % (Manual) 3 L Eosinophils % 1.9 D Eosinophils % (Manual) 2.0 Basophils % 0.6 Basophils % (Manual) 0.0 Myelocytes % (Man) 0 Promyelocytes % (Man) 0 Blast Cells % (Manual) 0 Nucleated RBC % 0 Metamyelocytes 0 Hypochromia 0 Platelet Estimate Normal Polychromasia 1+ Poikilocytosis 1+ Anisocytosis 2+ Microcytosis 0 Macrocytosis 0 Spherocytes 1+ Tear Drop Cells 2+ Ovalocytes 1+ [place] Cells 1+ Sodium 137 Potassium 4.0 Chloride 106 Carbon Dioxide 24 Anion Gap 7 L BUN 8 Creatinine 1.0 Creat Clearance w eGFR > 60 Random Glucose 121 H Calcium 8.6 Problem List - Problems (1) Atrial fibrillation Code(s): I48.91 - UNSPECIFIED ATRIAL FIBRILLATION Qualifiers: Atrial fibrillation type: paroxysmal Qualified Code(s): I48.0 - Paroxysmal atrial fibrillation (2) HTN (hypertension) Code(s): I10 - ESSENTIAL (PRIMARY) HYPERTENSION Qualifiers: Hypertension type: essential hypertension Qualified Code(s): I10 - Essential (primary) hypertension (3) Hemoptysis Code(s): R04.2 - HEMOPTYSIS (4) History of aortic aneurysm Code(s): Z86.79 - PERSONAL HISTORY OF OTHER DISEASES OF THE CIRCULATORY SYSTEM (5) Hypothyroid Code(s): E03.9 - HYPOTHYROIDISM, UNSPECIFIED (6) Multilobar lung infiltrate Code(s): R91.8 - OTHER NONSPECIFIC ABNORMAL FINDING OF LUNG FIELD (7) Pneumonia Code(s): J18.9 - PNEUMONIA, UNSPECIFIED ORGANISM Qualifiers: Pneumonia type: due to unspecified organism Laterality: right Lung location: unspecified part of lung Qualified Code(s): J18.9 - Pneumonia, unspecified organism RUL/RLL PNEUMONIA COMMUNITY ACQUIRED HEMOPTYSIS H/O [place] CELL CA S/P RESECTION/RT H/O ESOPHAGEAL CA S/P RESECTION AFIB S/P ABLATION ASHD HLD DIASTOLIC HF PLAN IV ABX O2 NEEDED INHALED BRONCHODILATORS AC F/U CHEST CT 4-6 WKS TO CONFIRM RESOLUTION OF INFILTRATES DR SAENZ
--- NOTE | 2018-10-19 14:20 | PN ---
Physical Exam: SUBJECTIVE: Patient seen and examined, breathing improved, minimal scant hemoptysis, no fevers/chills, overall feels well, eager to go home. OBJECTIVE: Vital Signs Period Temp Pulse Resp BP Sys/Valenzuela Pulse Ox Last 24 Hr 97.7 F-100.2 F 57-79 20-20 118-150/59-98 97-97 GENERAL: The patient is awake, alert, and fully oriented, in no acute distress. neck: scarring, no erythema or swelling Chest: right basilar to midlung rales, good air entry, no wheezing Abdomen:Soft, obese,NT Extremities: no pedal edema. Laboratory Results - last 24 hr 10/19/18 10/19/18 06:10 06:10 WBC 6.0 RBC 4.27 Hgb 12.3 Hct 38.9 MCV 91.1 MCH 28.7 MCHC 31.5 L RDW 15.1 Plt Count 189 MPV 8.3 Absolute Neuts (auto) 4.4 Neutrophils % 73.4 Neutrophils % (Manual) 81.6 Band Neutrophils % 1.0 Lymphocytes % 15.5 D Lymphocytes % (Manual) 7.2 L Monocytes % 8.6 Monocytes % (Manual) 3 L Eosinophils % 1.9 D Eosinophils % (Manual) 2.0 Basophils % 0.6 Basophils % (Manual) 0.0 Myelocytes % (Man) 0 Promyelocytes % (Man) 0 Blast Cells % (Manual) 0 Nucleated RBC % 0 Metamyelocytes 0 Hypochromia 0 Platelet Estimate Normal Polychromasia 1+ Poikilocytosis 1+ Anisocytosis 2+ Microcytosis 0 Macrocytosis 0 Spherocytes 1+ Tear Drop Cells 2+ Ovalocytes 1+ [place] Cells 1+ Sodium 137 Potassium 4.0 Chloride 106 Carbon Dioxide 24 Anion Gap 7 L BUN 8 Creatinine 1.0 Creat Clearance w eGFR > 60 Random Glucose 121 H Calcium 8.6 Active Medications Generic Name Dose Route Start Last Admin Trade Name Freq PRN Reason Stop Dose Admin Acetaminophen 650 mg 10/17/18 16:05 10/18/18 18:00 Tylenol - PO 650 mg Q6H PRN Administration FEVER Atorvastatin Calcium 40 mg 10/17/18 22:00 10/18/18 22:16 Lipitor - PO 40 mg HS [facility] Administration Vancomycin HCl 1,000 mg in 250 mls @ 166.667 mls/hr 10/18/18 04:30 10/19/18 04:56 Vancomycin (Pre-Docked) IVPB 166.667 mls/hr Q12H [facility] Administration Protocol Piperacillin Sod/Tazobactam 100 mls @ 200 mls/hr 10/17/18 21:30 10/19/18 09: 53 Sod 4.5 gm/ Dextrose IVPB 200 mls/hr Q8H-IV [facility] Administration Protocol Lactobacillus Acidophilus 1 tab 10/18/18 10:00 10/19/18 09:55 Bacid - PO 1 tab DAILY [facility] Administration Levothyroxine Sodium 150 mcg 10/18/18 07:00 10/19/18 06:41 Synthroid - PO 150 mcg 0700 [facility] Administration Metoprolol Succinate 100 mg 10/17/18 22:00 10/19/18 09:55 Toprol Xl - PO 100 mg BID [facility] Administration Potassium Chloride 40 meq 10/18/18 14:15 10/19/18 09:55 Potassium Chloride Oral Liquid PO 40 meq BID [facility] Administration Rivaroxaban 20 mg 10/19/18 18:00 Xarelto - PO DAILY@1800 [facility] Tramadol HCl 50 mg 10/17/18 17:40 Ultram - PO Q8H PRN PAIN LEVEL 6-10 Zolpidem Tartrate 5 mg 10/18/18 22:00 Ambien - PO HS PRN INSOMNIA Microbiology 10/18/18 17:00 Sputum - Expectorated Direct Acid Fast Bacilli Smear - Final 10/18/18 17:00 Sputum - Expectorated Direct Acid Fast Bacilli Smear - Final 10/18/18 08:10 Sputum - Expectorated Gram Stain - Final 10/18/18 08:10 Sputum - Expectorated Sputum Culture - Preliminary NORMAL RESPIRATORY JAXON 10/18/18 17:00 Urine For Antigen Detection Legionella Antigen - Final 10/18/18 17:00 Urine For Antigen Detection Streptococcus pneumoniae Antigen (M - Final 10/17/18 20:50 Blood - Peripheral Venous Blood Culture - Preliminary NO GROWTH OBTAINED AFTER 24 HOURS, INCUBATION TO CONTINUE FOR 4 DAYS. 10/17/18 20:15 Blood - Peripheral Venous Blood Culture - Preliminary NO GROWTH OBTAINED AFTER 24 HOURS, INCUBATION TO CONTINUE FOR 4 DAYS. 10/18/18 08:10 Sputum - Expectorated Direct Acid Fast Bacilli Smear - Final ASSESSMENT/PLAN: 73 yom with PMhx of esophageal Ca s/p endoscopy resection 6 years ago, [place] cell Ca left face s/p excision/radiation/lymph node dissection, HTN,HLD, CAD, dCHF, atrial fibrillation on xarelto, Ascending aortic aneurysm (3.9 cm) admitted with hemoptysis and right multifocal CAP -Right multifocal PNA -hemoptysis, suspect in the setting of AC, low suspicion for TB -Atrial fibrillation on AC -Diastolic HF -HTN -HLD -Diastolic Heart failure -Esophageal ca s/p endoscopic resection 6 years ago -[place] Cell Ca left face s/p excision/radiation/lymph node dissection Plan: Doing well, hemoptysis improved. h/h stable. Continue xarelto with monitoring ID input noted, zosyn/vancomycin ,follow up TB studies/QFT. Neg pressure isolation, however low suspicion based on current findings and presentation. change KCL t 40 meq daily Continue statin/levothyroxine/metoprolol/tramadol DVTPPX with xarelto Dispo in 48 hours if above studies non concerning and continues to improve. Plan discussed with patient and RN in detail, all questions answered. Visit type - Emergency Visit Emergency Visit: Yes ED Registration Date: 10/17/18 Care time: The patient presented to the Emergency Department on the above date and was hospitalized for further evaluation of their emergent condition. - New Patient This patient is new to me today: Yes Date on this admission: 10/19/18 - Critical Care Critical Care patient: No - Discharge Referral Referred to [facility] No
[2018-10-19] MEDS ORDERED: RIVAROXABAN 20 MG TABLET PO SCH (18:00)
[2018-10-19] MEDS: ACETAMINOPHEN 325 MG TABLET (FP) PO PRN (18:43)
[2018-10-19] MEDS: ATORVASTATIN CA 40 MG TABLET (FP) PO SCH (21:08)
[2018-10-20] MEDS ORDERED: DEXTROSE 5%-WATER 100 ML IVPB ONE ×2 (01:19→09:48)
[2018-10-20] MEDS ORDERED: PIPERACILLIN/TAZOBACTAM 4.5 GM VIAL IVPB ONE ×2 (01:19→09:47)
[2018-10-20] MEDS: PIPERACILLIN/TAZOB 4.5 GM 4.5 GM in DEXTROSE 5%-WATER 100 ML IVPB SCH ×2 (01:30→10:18)
[2018-10-20] MEDS: VANCOMYCIN 1 GRAM (PRE-DOCKED) 1,000 MG/250 ML BAG IVPB SCH (05:33)
[2018-10-20] MEDS: LEVOTHYROXINE NA 150 MCG TABLET PO SCH (07:00)
[2018-10-20] MEDS ORDERED: POTASSIUM CHLORIDE ORAL LIQUID 20 MEQ/15 ML PO SCH (10:00)
[2018-10-20] MEDS: LACTOBACILLUS ACIDOPHILUS 1 TABLET PO SCH (10:17)
[2018-10-20 12:32] LABS: ANION GAP 7 MMOL/L (8-16); BLOOD UREA NITROGEN 8 mg/dL (7-18); CALCIUM 8.4 mg/dL (8.5-10.1); CHLORIDE 106 mmol/L (98-107); CO2 23 mmol/L (21-32); CREATININE 1.1 mg/dL (0.55-1.3); GLUCOSE,RANDOM 107 mg/dL (74-106); MAGNESIUM 1.2 mg/dL (1.8-2.4); SODIUM 137 mmol/L (136-145)
[2018-10-20] MEDS ORDERED: MAGNESIUM SULF 50% (8.12 MEQ/2 ML-1 GM VIAL) IVPB ONE (13:47)
--- NOTE | 2018-10-20 13:49 | PN ---
Physical Exam: SUBJECTIVE: Patient seen and examined, breathing well, no new fevers, or concerns. OBJECTIVE: Vital Signs Period Temp Pulse Resp BP Sys/Valenzuela Pulse Ox Last 24 Hr 97.9 F-98.2 F 60-89 16-20 106-140/58-86 96-97 GENERAL: The patient is awake, alert, and fully oriented, in no acute distress. HEAD: Normal with no signs of trauma. EYES: PERRL, extraocular movements intact, sclera anicteric, conjunctiva clear. No ptosis. ENT: Ears normal, nares patent, oropharynx clear without exudates, moist mucous membranes. NECK: Trachea midline, full range of motion, supple. LUNGS: Breath sounds equal, clear to auscultation bilaterally, no wheezes, no crackles, no accessory muscle use. HEART: Regular rate and rhythm, S1, S2 without murmur, rub or gallop. ABDOMEN: Soft, nontender, nondistended, normoactive bowel sounds, no guarding, no rebound, no hepatosplenomegaly, no masses. EXTREMITIES: 2+ pulses, warm, well-perfused, no edema. NEUROLOGICAL: Cranial nerves II through XII grossly intact. Normal speech, gait not observed. PSYCH: Normal mood, normal affect. SKIN: Warm, dry, normal turgor, no rashes or lesions noted Laboratory Results - last 24 hr 10/17/18 10/19/18 10/20/18 21:00 15:47 06:20 Sodium 137 Potassium 4.0 Chloride 106 Carbon Dioxide 23 Anion Gap 7 L BUN 8 Creatinine 1.1 Creat Clearance w eGFR > 60 Random Glucose 107 H Calcium 8.4 L Magnesium 1.2 L Vancomycin Pre-Dose 11.9 L TB Test (QFT) Nil 0.03 TB Test (QFT) Mitogen >10.00 TB Test (QFT) Antigen 0.04 TB Positive Criteria Active Medications Generic Name Dose Route Start Last Admin Trade Name Freq PRN Reason Stop Dose Admin Acetaminophen 650 mg 10/17/18 16:05 10/19/18 18:43 Tylenol - PO 650 mg Q6H PRN Administration FEVER Atorvastatin Calcium 40 mg 10/17/18 22:00 10/19/18 21:08 Lipitor - PO 40 mg HS [facility] Administration Vancomycin HCl 1,000 mg in 250 mls @ 166.667 mls/hr 10/18/18 04:30 01/06/19 05:33 Vancomycin (Pre-Docked) IVPB 166.667 mls/hr Q12H [facility] Administration Protocol Piperacillin Sod/Tazobactam 100 mls @ 200 mls/hr 10/17/18 21:30 10/20/18 10: 18 Sod 4.5 gm/ Dextrose IVPB 200 mls/hr Q8H-IV [facility] Administration Protocol Lactobacillus Acidophilus 1 tab 10/18/18 10:00 10/20/18 10:17 Bacid - PO 1 tab DAILY [facility] Administration Levothyroxine Sodium 150 mcg 10/18/18 07:00 10/20/18 07:00 Synthroid - PO 150 mcg 0700 [facility] Administration Magnesium Sulfate 4 gm 10/20/18 13:47 Magnesium Sulfate IVPB 10/20/18 13:48 ONCE ONE Metoprolol Succinate 100 mg 10/17/18 22:00 10/20/18 10:18 Toprol Xl - PO 100 mg BID [facility] Administration Rivaroxaban 20 mg 10/19/18 18:00 10/19/18 17:35 Xarelto - PO 20 mg DAILY@1800 [facility] Administration Tramadol HCl 50 mg 10/17/18 17:40 Ultram - PO Q8H PRN PAIN LEVEL 6-10 Zolpidem Tartrate 5 mg 10/18/18 22:00 Ambien - PO HS PRN INSOMNIA ASSESSMENT/PLAN: 73 yom with PMhx of esophageal Ca s/p endoscopy resection 6 years ago, [place] 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 h/h stable. Continue xarelto with monitoring ID input noted, zosyn/vancomycin ,QFT neg. Discussed with Dr. Martin. D/c neg pressure isolation. Follow up for transition to PO abx. No home oxygen needs noted on eval. d/c PO Kcl suppl. Mg 4 g IV x1 Continue statin/levothyroxine/metoprolol/tramadol DVTPPX with xarelto patient declines need for home VNS or services Dispo dc home later today or tomorrow pending ID input for PO abx and Mg suppl. Plan discussed with patient and RN in detail, all questions answered. Visit type - Emergency Visit Emergency Visit: Yes ED Registration Date: 10/17/18 Care time: The patient presented to the Emergency Department on the above date and was hospitalized for further evaluation of their emergent condition. - New Patient This patient is new to me today: No - Critical Care Critical Care patient: No - Discharge Referral Referred to [facility] No
[2018-10-20] MEDS: ACETAMINOPHEN 325 MG TABLET (FP) PO PRN (13:52)
--- NOTE | 2018-10-20 13:54 | PN ---
Progress Note (short form) - Note Progress Note: Breathing continues to improve. Cough is better. No hemoptysis overnight. Intake & Output 10/17/18 10/18/18 10/19/18 10/20/18 23:59 23:59 23:59 23:59 Intake Total 910 1180 350 Balance 910 1180 350 Weight 280 lb Last Vital Signs Temp Pulse Resp BP Pulse Ox 98.0 F 89 18 133/86 96 10/20/18 06:00 10/20/18 10:01 10/20/18 09:00 10/20/18 06:00 10/20/18 10:01 Active Medications Acetaminophen (Tylenol -) 650 mg PO Q6H PRN PRN Reason: FEVER Last Admin: 10/19/18 18:43 Dose: 650 mg Atorvastatin Calcium (Lipitor -) 40 mg PO HS [facility] Last Admin: 10/19/18 21:08 Dose: 40 mg Vancomycin HCl (Vancomycin (Pre-Docked)) 1,000 mg in 250 mls @ 166.667 mls/hr IVPB Q12H [facility]; Protocol Last Admin: 10/20/18 05:33 Dose: 166.667 mls/hr Piperacillin Sod/Tazobactam (Sod 4.5 gm/ Dextrose) 100 mls @ 200 mls/hr IVPB Q8H-IV [facility]; Protocol Last Admin: 10/20/18 10:18 Dose: 200 mls/hr Lactobacillus Acidophilus (Bacid -) 1 tab PO DAILY [facility] Last Admin: 10/20/18 10:17 Dose: 1 tab Levothyroxine Sodium (Synthroid -) 150 mcg PO 0700 [facility] Last Admin: 10/20/18 07:00 Dose: 150 mcg Metoprolol Succinate (Toprol Xl -) 100 mg PO BID [facility] Last Admin: 10/20/18 10:18 Dose: 100 mg Rivaroxaban (Xarelto -) 20 mg PO DAILY@1800 [facility] Last Admin: 10/19/18 17:35 Dose: 20 mg Tramadol HCl (Ultram -) 50 mg PO Q8H PRN PRN Reason: PAIN LEVEL 6-10 Zolpidem Tartrate (Ambien -) 5 mg PO HS PRN PRN Reason: INSOMNIA Constitutional: Yes: NAD Cardiovascular: Yes: Regular Rate and Rhythm. No: Murmur Respiratory: Yes: Cough, coarse rhonchi Right > left. No: Accessory Muscle Use , SOB, Tachypnea, Wheezes Gastrointestinal: Yes: WNL, Normal Bowel Sounds, Soft. No: Distention, Tenderness Genitourinary: Yes: WNL Extremities: Yes: WNL Edema: No Neurological: Yes: WNL, Alert, Oriented Psychiatric: Yes: WNL, Alert, Oriented Labs: Laboratory Results - last 24 hr 10/17/18 10/19/18 10/20/18 21:00 15:47 06:20 Sodium 137 Potassium 4.0 Chloride 106 Carbon Dioxide 23 Anion Gap 7 L BUN 8 Creatinine 1.1 Creat Clearance w eGFR > 60 Random Glucose 107 H Calcium 8.4 L Magnesium 1.2 L Vancomycin Pre-Dose 11.9 L TB Test (QFT) Nil 0.03 TB Test (QFT) Mitogen >10.00 TB Test (QFT) Antigen 0.04 TB Positive Criteria Problem List - Problems (1) Atrial fibrillation Code(s): I48.91 - UNSPECIFIED ATRIAL FIBRILLATION Qualifiers: Atrial fibrillation type: paroxysmal Qualified Code(s): I48.0 - Paroxysmal atrial fibrillation (2) HTN (hypertension) Code(s): I10 - ESSENTIAL (PRIMARY) HYPERTENSION Qualifiers: Hypertension type: essential hypertension Qualified Code(s): I10 - Essential (primary) hypertension (3) Hemoptysis Code(s): R04.2 - HEMOPTYSIS (4) History of aortic aneurysm Code(s): Z86.79 - PERSONAL HISTORY OF OTHER DISEASES OF THE CIRCULATORY SYSTEM (5) Hypothyroid Code(s): E03.9 - HYPOTHYROIDISM, UNSPECIFIED (6) Multilobar lung infiltrate Code(s): R91.8 - OTHER NONSPECIFIC ABNORMAL FINDING OF LUNG FIELD (7) Pneumonia Code(s): J18.9 - PNEUMONIA, UNSPECIFIED ORGANISM Qualifiers: Pneumonia type: due to unspecified organism Laterality: right Lung location: unspecified part of lung Qualified Code(s): J18.9 - Pneumonia, unspecified organism RUL/RLL PNEUMONIA COMMUNITY ACQUIRED HEMOPTYSIS H/O JERAMY CELL CA S/P RESECTION/RT H/O ESOPHAGEAL CA S/P RESECTION AFIB S/P ABLATION ASHD HLD DIASTOLIC HF PLAN IV ABX O2 NEEDED INHALED BRONCHODILATORS AC F/U CHEST CT 4-6 WKS TO CONFIRM RESOLUTION OF INFILTRATES DR SAENZ
[2018-10-20 14:11] LABS: BASO % 0.9 % (0-2.0); EOS % 3.6 % (0-4.5); HEMATOCRIT 37.8 % (35.4-49); LYMPH % 19.6 % (8-40); MCH 28.9 pg (25.7-33.7); MCHC 31.8 g/dl (32.0-35.9); MEAN CELL VOLUME 90.9 fl (80-96); MEAN PLT VOLUME 8.3 fl (7.5-11.1); MONO % 11.1 % (3.8-10.2); NEUT % 64.8 % (42.8-82.8); PLATELET COUNT 189 K/MM3 (134-434); RBC 4.16 M/mm3 (4.00-5.60); RDW 15.1 % (11.9-15.9); WHITE BLOOD COUNT 4.6 K/mm3 (4.0-10.0)
--- NOTE | 2018-10-20 16:02 | DS ---
Physical Exam: SUBJECTIVE: Patient seen and examined, no dyspnea, new hemoptysis or concerns. Feeling well, eager to go home. OBJECTIVE: Vital Signs Period Temp Pulse Resp BP Sys/Valenzuela Pulse Ox Last 24 Hr 97.9 F-98.1 F 60-89 16-20 106-140/63-86 96-97 PHYSICAL EXAM GENERAL: The patient is awake, alert, and fully oriented, in no acute distress. HEAD: Normal with no signs of trauma. EYES: PERRL, extraocular movements intact, sclera anicteric, conjunctiva clear. ENT: Ears normal, nares patent, oropharynx clear without exudates, moist mucous membranes. NECK: Trachea midline, full range of motion, supple. LUNGS: Breath sounds equal, clear to auscultation bilaterally, no wheezes, no crackles, no accessory muscle use. HEART: Regular rate and rhythm, S1, S2 without murmur, rub or gallop. ABDOMEN: Soft, nontender, nondistended, normoactive bowel sounds, no guarding, no rebound, no hepatosplenomegaly, no masses. EXTREMITIES: 2+ pulses, warm, well-perfused, no edema. NEUROLOGICAL: Cranial nerves II through XII grossly intact. Normal speech, gait not observed. PSYCH: Normal mood, normal affect. SKIN: Warm, dry, normal turgor, no rashes or lesions noted. LABS Laboratory Results - last 24 hr 10/19/18 10/20/18 10/20/18 15:47 06:20 06:20 WBC 4.6 RBC 4.16 Hgb 12.0 Hct 37.8 MCV 90.9 MCH 28.9 MCHC 31.8 L RDW 15.1 Plt Count 189 MPV 8.3 Absolute Neuts (auto) 3.0 Neutrophils % 64.8 Lymphocytes % 19.6 D Monocytes % 11.1 H Eosinophils % 3.6 D Basophils % 0.9 Nucleated RBC % 0 Sodium 137 Potassium 4.0 Chloride 106 Carbon Dioxide 23 Anion Gap 7 L BUN 8 Creatinine 1.1 Creat Clearance w eGFR > 60 Random Glucose 107 H Calcium 8.4 L Magnesium 1.2 L Vancomycin Pre-Dose 11.[address] chest - EXAM#: TYPE/EXAM: RESULT: [id number] CT/CHEST CT WITH CONTRAST HISTORY PROVIDED: Rule out mass. Sequential axial images were obtained from the thoracic inlet through the domes of the diaphragm following the administration of intravenous contrast material. Evaluation of the lung hogue demonstrates patchy consolidation within the right upper, middle and lower lobes. The consolidation is most dense within the upper lobe. This is consistent with a diffuse pneumonia. Clinical correlation and follow-up is recommended. The left lung is clear. No pulmonary masses or pleural effusions are identified. Examination of the mediastinum demonstrates slightly prominent lymph nodes scattered throughout the mediastinal chains. The etiology and significance of this mild adenopathy is uncertain. There is no evidence of mediastinal masses or fluid collections. The heart is not enlarged. Pulmonary embolism protocol was not utilized, however, there is no gross evidence of PE. Evaluation of the upper abdomen demonstrates no acute abnormalities. Bilateral renal cysts are present. There is no evidence of acute bony pathology. Large anterior osteophytes are identified at T7-8 and T10-11. IMPRESSION: Extensive right lung consolidation, most marked within the upper lobe, concerning for acute pneumonia. Clinical correlation and follow-up recommended. Please see above discussion. 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 Infectious disease was consulted and he was placed on zosyn/vancomycin with improvement. Initial concerns for TB were raised and sputum AFB were sent, however, his quantiferon was negative. His hemoptysis resolved, his xarelto was continued and hemoglobin was stable. He was oxygenating well on room air with activity prior to discharge. His symptoms markedly improved with no new fevers or concerns. He is transitioned to Augmentin for 7 days per infectious recommendations. He was seen by pulmonary and advised CT chest in 4-6 weeks. He was noted with hypokalemia and hypomagnesemia that were repleted. He is advised on outpatient follow up imaging and interval labs for hemoglobin/electrolytes monitoring. He will be discharged in stable condition. Condition: Good - Instructions Diet, Activity, Other Instructions: You were admitted with bloody sputum and found with extensive right sided pneumonia. You were treated with antibiotics. You quantiferon test (for TB) was negative and you are discharged home on oral antibiotics. MEDICATIONS: New medications are: Augmentin 875 mg twice daily for 7 days Lactobacillus 1 tablet daily while on antibiotics Magnesium supplementation 800 mg daily for 5 more days. Continue your home medications as before ACTIVITY; rest and light activity till your doctor visit this week, then resume as tolerated. FOLLOW UP: CT chest in 4-6 weeks You magnesium level was noted. Recommend repeat blood work (basic metabolic panel, magnesium levels, Complete blood count) in 2-3 days with your doctor Follow up with Dr. Thornton early this week and blood work as above Follow up with lung doctor in 2 weeks (information provided) If you notice any new bloody sputum, cough that does not go way, fevers, chills , trouble breathing or any new concerns, please call 911 or come to ED. Referrals: Sanjeev Salmon MD [Staff Physician] - 2 Weeks Vega Thornton MD [Primary Care Provider] - Disposition: HOME - Home Medications Comprehensive Discharge Medication List: Ambulatory Orders Ca/D3/Mag Ox/Zinc/Cotton Baler/Kartik/Bor [Caltrate 600+D Plus Tab Chew] 1 each PO ASDIR Cholecalciferol (Vitamin D3) [Vitamin D3] 1,000 unit PO DAILY 03/13/14 Fenofibrate 160 mg PO DAILY 03/13/14 Multivit-Min/FA/Lycopene/Lut [Centrum Silver Tablet] 1 each PO DAILY 03/13/14 [place]-3 Acid Ethyl Esters [Lovaza -] 2,000 mg PO BID 03/13/14 Omeprazole [Prilosec (RX)] 20 mg PO BID 03/13/14 Rivaroxaban [Xarelto -] 20 mg PO DAILY 03/13/14 Tramadol HCl 50 mg PO ASDIR 03/13/14 Zolpidem Tartrate 10 mg PO ASDIR 03/13/14 Atorvastatin Ca [Lipitor] 40 mg PO HS 10/17/18 Levothyroxine [Synthroid -] 150 mcg PO DAILY 10/17/18 Metoprolol Succinate [Toprol Xl] 100 mg PO BID 10/17/18 Amox-Tr/K Cl [Augmentin - 875Mg Tablet] 1 tab PO BID #14 tablet 10/20/18 Lactobacillus Acidophilus [Bacid -] 1 tab PO DAILY 7 Days #7 tab 10/20/18 Magnesium Oxide [Magnesium] 800 mg PO DAILY 5 Days #10 tablet 10/20/18 This patient is new to me today: No Emergency Visit: Yes ED Registration Date: 10/17/18 Care time: The patient presented to the Emergency Department on the above date and was hospitalized for further evaluation of their emergent condition. Critical Care patient: No - Discharge Referral Referred to [facility] No
--- NOTE | 2018-10-20 17:15 | PN ---
Progress Note, Physician History of Present Illness: OOB in chair No complaints No hemopysis No c/o chest pain/ dyspnea No c/o fever/ chills WBC WNL Sputum AFB (-) x3 Sputum c/s normal evens - Current Medication List Current Medications: Active Medications Acetaminophen (Tylenol -) 650 mg PO Q6H PRN PRN Reason: FEVER Last Admin: 10/20/18 13:52 Dose: 650 mg Atorvastatin Calcium (Lipitor -) 40 mg PO HS [facility] Last Admin: 10/19/18 21:08 Dose: 40 mg Vancomycin HCl (Vancomycin (Pre-Docked)) 1,000 mg in 250 mls @ 166.667 mls/hr IVPB Q12H [facility]; Protocol Last Admin: 10/20/18 05:33 Dose: 166.667 mls/hr Piperacillin Sod/Tazobactam (Sod 4.5 gm/ Dextrose) 100 mls @ 200 mls/hr IVPB Q8H-IV [facility]; Protocol Last Admin: 10/20/18 10:18 Dose: 200 mls/hr Lactobacillus Acidophilus (Bacid -) 1 tab PO DAILY [facility] Last Admin: 10/20/18 10:17 Dose: 1 tab Levothyroxine Sodium (Synthroid -) 150 mcg PO 0700 [facility] Last Admin: 10/20/18 07:00 Dose: 150 mcg Metoprolol Succinate (Toprol Xl -) 100 mg PO BID [facility] Last Admin: 10/20/18 10:18 Dose: 100 mg Rivaroxaban (Xarelto -) 20 mg PO DAILY@1800 [facility] Last Admin: 10/19/18 17:35 Dose: 20 mg Tramadol HCl (Ultram -) 50 mg PO Q8H PRN PRN Reason: PAIN LEVEL 6-10 Zolpidem Tartrate (Ambien -) 5 mg PO HS PRN PRN Reason: INSOMNIA - Objective Vital Signs: Vital Signs Temperature 98 F 10/20/18 13:57 Pulse Rate 79 10/20/18 13:57 Respiratory Rate 20 10/20/18 13:57 Blood Pressure 133/76 10/20/18 13:57 O2 Sat by Pulse Oximetry (%) 96 10/20/18 10:01 Constitutional: Yes: No Distress Cardiovascular: Yes: Regular Rate and Rhythm, S1, S2 Respiratory: Yes: CTA Bilaterally Gastrointestinal: Yes: Normal Bowel Sounds, Soft Edema: No Labs: CBC, BMP 10/20/18 06:20 10/20/18 06:20 INR, PTT INR 1.78 (0.83-1.09) H 10/17/18 12:15 Assessment/Plan Multilobar pneumonia Hemoptysis resolved Substitute Augmentin 875mg po bid x7d Outpatient follow up CT chest per pulmonary
[2018-10-20 18:09] LABS: ANISOCYTOSIS 1+; MACROCYTOSIS 0; PLATELET ESTIMATE NORMAL
[2018-10-20 19:25] VITALS: BP 120/67; PULSE 70; TEMP 98.8
[2018-10-21 18:15] LABS: ATYPICAL pANCA <1:20 titer (Neg:<1:20); C-ANCA <1:20 titer (Neg:<1:20); P-ANCA <1:20 titer (Neg:<1:20)
== END 2018-10-20 17:54 | disposition home or self-care (01) | DRG 194 ==
LOC: JER 10:57 → JERBED 14:23 → J4W 19:36
PROVIDERS: ADMIT Internal Medicine; ATTEND Hospitalist
DX: J18.9 Pneumonia, unspecified organism (principal); R04.2 Hemoptysis; I50.32 Chronic diastolic (congestive) heart failure; I25.10 Atherosclerotic heart disease of native coronary artery without angina pectoris; E78.5 Hyperlipidemia, unspecified; I11.0 Hypertensive heart disease with heart failure; D72.829 Elevated white blood cell count, unspecified; E03.9 Hypothyroidism, unspecified; E87.6 Hypokalemia; I48.0 Paroxysmal atrial fibrillation
CPT/HCPCS: 36415; 71046-TC-FY; 71260-TC; 80048; 80053; 83520; 83735; 83880; 85025; 85610; 85651; 85730; 86140; 86256; 86480; 87040; 87070; 87116; 87205; 87206; 87556; 87899; 93005; 93010; 94761; 99281-25; G0480

== ENCOUNTER 2019-07-03 16:51 | Inpatient (IN) | payer OTHER, BC ==
[2019-07-03] MEDS ORDERED: SODIUM CHLORIDE 2,994 ML IV ONE (17:28)
[2019-07-03] MEDS ORDERED: ACETAMINOPHEN 1000 MG/100 ML VIAL (NON FORMULARY) IVPB ONE (17:29)
--- NOTE | 2019-07-03 17:29 | PDOC ---
Rapid Medical Evaluation Chief Complaint: Chest Pain Time Seen by Provider: 07/03/19 17:23 Medical Evaluation: Allergies Allergy/AdvReac Type Severity Reaction Status Date / Time clindamycin Allergy Verified 07/03/19 17:22 ibuprofen [From Motrin] Allergy Verified 07/03/19 17:22 naproxen sodium [From Aleve] Allergy Verified 07/03/19 17:22 NSAIDS (Non-Steroidal Allergy Verified 07/03/19 17:22 Anti-Inflamma 07/03/19 17:23 Pt presents to the ER with R sided chest pain and hempotysis. Denies associated shortness of breath. Admits to generalized weakness. On blood thinners. Exam: Lungs CTAB, RRR, S1S2, febrile 102F Orders: Sepsis order set Pt to proceed to the ER for further evaluation Discharge Disposition - Diagnosis Fever - Referrals Referrals: Vega Thornton MD [Primary Care Provider] - - Patient Instructions - Post Discharge Activity
[2019-07-03] MEDS ORDERED: AZITHROMYCIN IVPB 500 MG in DEXTROSE 5%-WATER - 250 ML IVPB ONE (17:49)
[2019-07-03] MEDS ORDERED: CEFTRIAXONE 1,000 MG in DEXTROSE 5%-WATER - 50 ML IVPB ONE (17:49)
[2019-07-03] MEDS ORDERED: ACETAMINOPHEN INJECTION 100 ML IVPB ONE (17:58)
[2019-07-03] MEDS ORDERED: AZITHROMYCIN IVPB 500 MG/250 ML BAG IVPB ONE (17:58)
[2019-07-03] MEDS ORDERED: CEFTRIAXONE 1 GM/50 ML BAG ONE (17:58)
[2019-07-03 18:37] LABS: BASO % 0.3 % (0-2.0); EOS % 0.7 % (0-4.5); HEMATOCRIT 43.1 % (35.4-49); LYMPH % 5.8 % (8-40); MCH 29.8 pg (25.7-33.7); MCHC 32.4 g/dl (32.0-35.9); MEAN CELL VOLUME 91.8 fl (80-96); MEAN PLT VOLUME 8.5 fl (7.5-11.1); MONO % 6.3 % (3.8-10.2); NEUT % 86.9 % (42.8-82.8); PLATELET COUNT 185 K/MM3 (134-434); RDW 13.5 % (11.9-15.9); WHITE BLOOD COUNT 6.4 K/mm3 (4.0-10.0)
[2019-07-03 18:39] LABS: VENOUS PC02 30.3 mmHg (38-52); VENOUS PH 7.48 (7.31-7.41); VENOUS PO2 73.9 mmHg (28-48)
[2019-07-03 19:07] LABS: BLOOD UREA NITROGEN 22.6 mg/dL (7-18); GLUCOSE,RANDOM 106 mg/dL (74-106)
[2019-07-03 19:08] LABS: ALBUMIN 3.2 g/dl (3.4-5.0); ALK PHOS 60 U/L (45-117); ANION GAP 8 MMOL/L (8-16); BILIRUBIN,TOTAL 0.8 mg/dL (0.2-1); CALCIUM 8.9 mg/dL (8.5-10.1); CHLORIDE 106 mmol/L (98-107); CO2 23 mmol/L (21-32); CREATININE 1.2 mg/dL (0.55-1.3); POTASSIUM 3.5 mmol/L (3.5-5.1); SGOT/AST 18 U/L (15-37); SGPT/ALT 16 U/L (13-61); SODIUM 138 mmol/L (136-145); TOT PROT 6.3 g/dl (6.4-8.2)
--- NOTE | 2019-07-03 19:31 | PDOC ---
*Physical Exam - Vital Signs Last Vital Signs Temp Pulse Resp BP Pulse Ox 102.6 F H 91 H 18 157/73 98 07/03/19 17:22 07/03/19 18:29 07/03/19 18:29 07/03/19 18:29 07/03/19 18:29 - Physical Exam Comments: 07/04/19 01:19 General Appearance: Nourished. No Apparent Distress HEENT: No Pharyngeal Erythema, Tonsillar Exudate, Tonsillar Erythema Neck: No Cervical Lymphadenopathy Respiratory/Chest: Lungs Clear, Normal Breath Sounds. No Crackles, Rales, Rhonchi, Wheezing Cardiovascular: Regular Rhythm, Tachycardic Rate. No Murmur, Gallops, Rubs Gastrointestinal/Abdominal: Normal Bowel Sounds, Soft. No Guarding, Rebound, Tenderness Musculoskeletal: No CVA Tenderness Extremity: Normal Capillary Refill Integumentary: Normal Color, Dry, Warm Neurologic: Fully Oriented, Alert, Normal Mood/Affect, Normal Response, ED Treatment Course - LABORATORY CBC & Chemistry Diagram: 07/03/19 18:00 07/03/19 18:00 - ADDITIONAL ORDERS Additional order review: Laboratory Results 07/03/19 07/03/19 07/03/19 18:00 18:00 18:00 PTT (Actin FS) VBG pH 7.48 H POC VBG pCO2 30.3 L POC VBG pO2 73.9 H VBG HCO3 22.3 L VBG O2 Sat (Marlene) 95.2 H VBG Base Excess 0.1 Sodium 138 Potassium 3.5 Chloride 106 Carbon Dioxide 23 Anion Gap 8 BUN 22.6 H Creatinine 1.2 Est GFR (CKD-EPI)AfAm 68.63 Est GFR (CKD-EPI)NonAf 59.21 Random Glucose 106 Lactic Acid 1.5 Calcium 8.9 Total Bilirubin 0.8 AST 18 ALT 16 Alkaline Phosphatase 60 Troponin I < 0.02 Total Protein 6.3 L Albumin 3.2 L 07/03/19 18:00 PTT (Actin FS) 36.4 VBG pH POC VBG pCO2 POC VBG pO2 VBG HCO3 VBG O2 Sat (Marlene) VBG Base Excess Sodium Potassium Chloride Carbon Dioxide Anion Gap BUN Creatinine Est GFR (CKD-EPI)AfAm Est GFR (CKD-EPI)NonAf Random Glucose Lactic Acid Calcium Total Bilirubin AST ALT Alkaline Phosphatase Troponin I Total Protein Albumin 07/03/19 18:00 RBC 4.70 MCV 91.8 MCHC 32.4 RDW 13.5 D MPV 8.5 Neutrophils % 86.9 H D Lymphocytes % 5.8 L D Monocytes % 6.3 Eosinophils % 0.7 D Basophils % 0.3 - Medications Given in the ED: ED Medications Discontinued Medications Generic Name Dose Route Start Last Admin Trade Name Anthony PRN Reason Stop Dose Admin Acetaminophen 1,000 mg 07/03/19 17:29 07/03/19 18:10 Ofirmev Injection - IVPB 07/03/19 17:30 1,000 mg ONCE ONE Administration Sodium Chloride 2,994 mls @ 1,497 mls/hr 07/03/19 17:28 07/03/19 18:28 Normal Saline - 30 ml/kg infuse over 2 hr (2994 ml) 07/03/19 19:27 1,497 mls/hr IV Administration ONCE ONE Azithromycin 500 mg/ Dextrose 250 mls @ 250 mls/hr 07/03/19 17:49 07/03/19 18 :45 IVPB 07/03/19 18:48 250 mls/hr ONCE ONE Administration Ceftriaxone Sodium 1,000 mg/ 50 mls @ 100 mls/hr 07/03/19 17:49 07/03/19 18: 20 Dextrose IVPB 07/03/19 18:18 100 mls/hr ONCE ONE Administration Medical Decision Making - Medical Decision Making 07/04/19 01:20 CBC, CMP, UA are unremarkable. Chest plain film demonstrates a right lower lobe infiltrate. Given the patient's hemoptysis and infiltrate on chest plain film, he will require admission for further monitoring and managing. We discussed the case with the admitting team who accepted the patient for admission. *DC/Admit/Observation/Transfer Diagnosis at time of Disposition: Hemoptysis Fever Qualifiers: Fever type: unspecified Qualified Code(s): R50.9 - Fever, unspecified Pneumonia Qualifiers: Pneumonia type: due to unspecified organism Laterality: unspecified laterality Lung location: unspecified part of lung Qualified Code(s): J18.9 - Pneumonia, unspecified organism - Discharge Dispostion Condition at time of disposition: Stable Decision to Admit order: Yes - Referrals - Patient Instructions - Post Discharge Activity
[2019-07-03 19:42] LABS: INR 1.46 (0.83-1.09); PROTHROMBIN TIME (PATIENT) 17.3 SEC (9.7-13.0)
[2019-07-03 22:21] LABS: PH,URINE 5.5 (5.0-8.0); URINE APPEARANCE CLEAR; URINE BILIRUBIN NEGATIVE (NEGATIVE); URINE COLOR YELLOW; URINE GLUCOSE (UA) NEGATIVE (NEGATIVE); URINE KETONE NEGATIVE (NEGATIVE); URINE LEUK ESTERASE NEGATIVE (NEGATIVE); URINE NITRITE NEGATIVE (NEGATIVE); URINE PROTEIN NEGATIVE (NEGATIVE); URINE UROBILINOGEN 0.2 mg/dL (0.2-1.0)
--- NOTE | 2019-07-03 22:38 | HP ---
CHIEF COMPLAINT: hemoptosis PCP: Dr. 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 Patient was admitted for hemoptosis in October and was treated for pneumonia which had since resolved on follow up CT scans. At the time the patient was tested for TB and was negative. Patient stated he was in his usual state of health until the day of admission. He had lunch with his friends and afterwards went home to take a nap and then began to feel some chills, right sided chest pain, generalized weakness, and had a cough productive of dark blood. He stated he had a total of about 1 cup of blood that he coughed up. He called his primary care who told him to present to the ED. Endorsed having night sweats several times a month, denied weight loss, fevers, and stated he was at his baseline strength level. He denied shortness of breath, nausea, vomiting, abdominal pain, fever, syncope , dizziness, lightheadedness, headaches, visual changes, urinary symptoms. He denies recent sick contacts, visiting healthcare institutions, recent travel, recent changes to medications, trauma. ER course was notable for: (1) Febrile to 102.6, HR 101 (2) CRE 1.2 (baseline 0.9-1.0) (3) CXR infiltrate noted in the RLL (4) given ceftriaxone and azithromycin, NS, Tylenol Recent Travel: denies PAST MEDICAL HISTORY: as above PAST SURGICAL HISTORY: resection of esophageal cancer resection of Alivia cell face CA Social History: Smoking: former smoker Alcohol: social drinking Drugs: denies Lives with . Allergies clindamycin Allergy (Verified 07/03/19 17:22) ibuprofen [From Motrin] Allergy (Verified 07/03/19 17:22) naproxen sodium [From Aleve] Allergy (Verified 07/03/19 17:22) NSAIDS (Non-Steroidal Anti-Inflamma Allergy (Verified 07/03/19 17:22) HOME MEDICATIONS: Home Medications Medication Instructions Recorded Ca/D3/Mag Ox/Zinc/Distribution Specialist/Kartik/Bor 1 each PO ASDIR 03/13/14 [Caltrate 600+D Plus Tab Chew] Cholecalciferol (Vitamin D3) 1,000 unit PO DAILY 03/13/14 [Vitamin D3] Fenofibrate 160 mg PO DAILY 03/13/14 Multivit-Min/FA/Lycopene/Lut 1 each PO ASDIR 03/13/14 [Centrum Silver Tablet] Omeprazole [Prilosec (RX)] 20 mg PO BID 03/13/14 Rivaroxaban [Xarelto -] 20 mg PO DAILY 03/13/14 Zolpidem Tartrate 10 mg PO ASDIR 03/13/14 Levothyroxine [Synthroid -] 150 mcg PO DAILY 10/17/18 Metoprolol Succinate [Toprol Xl] 100 mg PO BID 10/17/18 Atorvastatin Ca [Lipitor] 20 mg PO HS 07/03/19 Brimonidine Tartrate/Timolol 1 drop OU BID 07/03/19 [Combigan Eye Drops] Brinzolamide [Azopt] 1 drop OU BID 07/03/19 Icosapent Ethyl [Vascepa] 1 gm PO BID 07/03/19 Latanoprost/Pf [Latanoprost 0.005% 1 drop OU HS 07/03/19 Eye Drop] Magnesium Oxide [Magnesium] 800 mg PO TID 07/03/19 REVIEW OF SYSTEMS CONSTITUTIONAL: chills, generalized weakness Absent: fever, diaphoresis, malaise, loss of appetite, weight change HEENT: Absent: rhinorrhea, nasal congestion, throat pain, throat swelling, difficulty swallowing, visual changes CARDIOVASCULAR: chest pain (R sided) Absent: syncope, palpitations, irregular heart rate, lightheadedness, peripheral edema RESPIRATORY: cough, hemoptysis Absent: shortness of breath, dyspnea with exertion, orthopnea, wheezing, stridor GASTROINTESTINAL: Absent: abdominal pain, abdominal distension, nausea, vomiting, diarrhea, constipation, GENITOURINARY: Absent: dysuria, frequency, urgency, hesitancy, hematuria, flank pain, MUSCULOSKELETAL: back pain (chronic) Absent: myalgia, arthralgia, joint swelling, neck pain SKIN: Absent: rash, itching, pallor HEMATOLOGIC/IMMUNOLOGIC: Absent: easy bleeding, easy bruising, lymphadenopathy, frequent infections ENDOCRINE: Absent: unexplained weight gain, unexplained weight loss, heat intolerance, cold intolerance NEUROLOGIC: Absent: headache, focal weakness or paresthesias, dizziness, unsteady gait, seizure, mental status changes, PSYCHIATRIC: Absent: anxiety, depression, suicidal or homicidal ideation, hallucinations. PHYSICAL EXAMINATION Vital Signs - 24 hr 07/03/19 07/03/19 07/03/19 17:22 18:29 20:02 Temperature 102.6 F H 99.4 F Pulse Rate 101 H Pulse Rate [ 91 H 88 Apical] Respiratory 17 18 18 Rate Blood Pressure 146/89 Blood Pressure 157/73 137/74 [Right Arm] O2 Sat by Pulse 95 98 97 Oximetry (%) GENERAL: Awake, alert, and fully oriented, in no acute distress. HEAD: Normal with no signs of trauma. EYES: Pupils equal, round and reactive to light, extraocular movements intact, sclera anicteric, conjunctiva clear. EARS, NOSE, THROAT: Oropharynx clear without exudates. Moist mucous membranes. NECK: Normal range of motion, supple without lymphadenopathy, JVD. LUNGS: Breath sounds equal, significant crackles heard at RLL and LLL. Minor coarse breath sounds heard throughout. No wheezing, no accessory muscle use. HEART: Regular rate and rhythm, normal S1 and S2 without murmur, rub. ABDOMEN: Soft, nontender, not distended, normoactive bowel sounds, no guarding, no rebound, no masses. MUSCULOSKELETAL: Normal range of motion at all joints. No bony deformities or tenderness. UPPER EXTREMITIES: 2+ pulses, warm, well-perfused. No cyanosis. No clubbing. No peripheral edema. LOWER EXTREMITIES: 1+ pulses, warm, well-perfused. No calf tenderness. No peripheral edema. NEUROLOGICAL: Cranial nerves II-XII intact. 5/5 muscle strength bilaterally upper and lower extremities. PSYCHIATRIC: Cooperative. Good eye contact. Appropriate mood and affect. SKIN: Warm, dry, normal turgor, no rashes or lesions noted, normal capillary refill. Laboratory Results - last 24 hr 07/03/19 07/03/19 07/03/19 18:00 18:00 18:00 WBC 6.4 RBC 4.70 Hgb 14.0 Hct 43.1 MCV 91.8 MCH 29.8 MCHC 32.4 RDW 13.5 D Plt Count 185 MPV 8.5 Absolute Neuts (auto) 5.5 Neutrophils % 86.9 H D Lymphocytes % 5.8 L D Monocytes % 6.3 Eosinophils % 0.7 D Basophils % 0.3 Nucleated RBC % 0 PT with INR INR PTT (Actin FS) 36.4 VBG pH POC VBG pCO2 POC VBG pO2 VBG HCO3 VBG O2 Sat (Marlene) VBG Base Excess Sodium 138 Potassium 3.5 Chloride 106 Carbon Dioxide 23 Anion Gap 8 BUN 22.6 H Creatinine 1.2 Est GFR (CKD-EPI)AfAm 68.63 Est GFR (CKD-EPI)NonAf 59.21 Random Glucose 106 Lactic Acid Calcium 8.9 Total Bilirubin 0.8 AST 18 ALT 16 Alkaline Phosphatase 60 Troponin I < 0.02 Total Protein 6.3 L Albumin 3.2 L Urine Color Urine Appearance Urine pH Ur Specific [place] Urine Protein Urine Glucose (UA) Urine Ketones Urine Blood Urine Nitrite Urine Bilirubin Urine Urobilinogen Ur Leukocyte Esterase 07/03/19 07/03/19 07/03/19 18:00 18:00 18:00 WBC RBC Hgb Hct MCV MCH MCHC RDW Plt Count MPV Absolute Neuts (auto) Neutrophils % Lymphocytes % Monocytes % Eosinophils % Basophils % Nucleated RBC % PT with INR 17.30 H INR 1.46 H PTT (Actin FS) VBG pH 7.48 H POC VBG pCO2 30.3 L POC VBG pO2 73.9 H VBG HCO3 22.3 L VBG O2 Sat (Marlene) 95.2 H VBG Base Excess 0.1 Sodium Potassium Chloride Carbon Dioxide Anion Gap BUN Creatinine Est GFR (CKD-EPI)AfAm Est GFR (CKD-EPI)NonAf Random Glucose Lactic Acid 1.5 Calcium Total Bilirubin AST ALT Alkaline Phosphatase Troponin I Total Protein Albumin Urine Color Urine Appearance Urine pH Ur Specific [place] Urine Protein Urine Glucose (UA) Urine Ketones Urine Blood Urine Nitrite Urine Bilirubin Urine Urobilinogen Ur Leukocyte Esterase 07/03/19 22:10 WBC RBC Hgb Hct MCV MCH MCHC RDW Plt Count MPV Absolute Neuts (auto) Neutrophils % Lymphocytes % Monocytes % Eosinophils % Basophils % Nucleated RBC % PT with INR INR PTT (Actin FS) VBG pH POC VBG pCO2 POC VBG pO2 VBG HCO3 VBG O2 Sat (Marlene) VBG Base Excess Sodium Potassium Chloride Carbon Dioxide Anion Gap BUN Creatinine Est GFR (CKD-EPI)AfAm Est GFR (CKD-EPI)NonAf Random Glucose Lactic Acid Calcium Total Bilirubin AST ALT Alkaline Phosphatase Troponin I Total Protein Albumin Urine Color Yellow Urine Appearance Clear Urine pH 5.5 Ur Specific [place] 1.009 L Urine Protein Negative Urine Glucose (UA) Negative Urine Ketones Negative Urine Blood Negative Urine Nitrite Negative Urine Bilirubin Negative Urine Urobilinogen 0.2 Ur Leukocyte Esterase Negative EKG--> NSR, no ST segment changes noted, QTc 467 ASSESSMENT/PLAN: Jaime Hernandez is a 73 year old male with a past medical history of esophageal cancer (s/p endoscopic resection), 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 Sepsis secondary to likely PNA Hemoptosis [place] HTN Hypothyroid Sepsis secondary to likely PNA - febrile and tachycardic with likely source of pneumonia, similar presentation to previous admission - continue ceftriaxone - continue azithromycin - hold Xarelto in setting of hemoptosis - Flu swab - Respiratory panel - legionella and strep urine antigens - sputum cultures - can consider TB workup, however recently performed this year - ID consulted - IVF - continue to monitor for signs of infection Hemoptosis - likely related to PNA as presentation similar to last admission - hemodynamically stable, can follow up for ascending aortic aneurysm outpatient , however monitor vitals closely and low threshold for CT chest - can consider TB workup, however recently performed this year - hold Xarelto in setting of hemoptosis [place] - CRE 1.2, baseline 0.9-1.0 - likely in the setting of infection - receiving IV fluids HTN - continue home metoprolol 100 bid Hypothyroid - continue home Synthroid 150mcg HLD - continue home Lipitor 20mg daily FEN - NS + 10mEq KCl for 1L and then NS at 75cc/hr - continue to monitor electrolytes and replete as necessary - sodium/fat controlled diet Prophylaxis - SCDs, no chemical prophylaxis in setting of hemoptosis Code - full code Family Medical History Family Hx Cancer: Mother (melanoma), Sister (esophageal) Family Hx Congestive Heart Failure: Father Visit type - Emergency Visit Emergency Visit: Yes ED Registration Date: 07/03/19 Care time: The patient presented to the Emergency Department on the above date and was hospitalized for further evaluation of their emergent condition. - New Patient This patient is new to me today: Yes Date on this admission: 07/04/19 - Critical Care Critical Care patient: No
[2019-07-03] MEDS ORDERED: [UNRECOGNIZED DRUG - OTHER] PO SCH (22:45)
[2019-07-03] MEDS ORDERED: MULTIVITAMINS THER W-MINERALS COMBO TABLET (FP) PO SCH (22:45)
[2019-07-03] MEDS ORDERED: POTASSIUM CHLORIDE 10 MEQ in SODIUM CHLORIDE 1,000 ML IVPB SCH (23:15)
[2019-07-03] MEDS ORDERED: SODIUM CHLORIDE 1,000 ML IV SCH (23:15)
[2019-07-03] MEDS ORDERED: ACETAMINOPHEN 325 MG TABLET (FP) ONE (23:21)
[2019-07-03] MEDS: ACETAMINOPHEN 325 MG TABLET (FP) PO SCH (23:24)
--- NOTE | 2019-07-04 01:38 | PN ---
Teaching Attending Note Name of Resident: Smooth Zapien ATTENDING PHYSICIAN STATEMENT I saw and evaluated the patient. I reviewed the resident's note and discussed the case with the resident. I agree with the resident's findings and plan as documented. 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 Patient denied significant shortness of breath, sick contacts. or recent travels. Called his PCP- Rd. Thornton who advised him to come to ER. Recently treated for pneumonia in October. OBJECTIVE: Last Vital Signs Temp Pulse Resp BP Pulse Ox 99.4 F 88 18 137/74 97 07/03/19 20:02 07/03/19 20:02 07/03/19 20:02 07/03/19 20:02 07/03/19 20:02 gen- aaox3,nad heent -atrauamtic, no sinus tenderness neck supple cv-s1+s2+rrr chest Right base crackles appreciated abdomen -soft, nt Abnormal Lab Results 07/03/19 07/03/19 07/03/19 18:00 18:00 18:00 Neutrophils % 86.9 H D Lymphocytes % 5.8 L D PT with INR 17.30 H INR 1.46 H VBG pH POC VBG pCO2 POC VBG pO2 VBG HCO3 VBG O2 Sat (Marlene) BUN 22.6 H Total Protein 6.3 L Albumin 3.2 L Ur Specific [place] 07/03/19 07/03/19 18:00 22:10 Neutrophils % Lymphocytes % PT with INR INR VBG pH 7.48 H POC VBG pCO2 30.3 L POC VBG pO2 73.9 H VBG HCO3 22.3 L VBG O2 Sat (Marlene) 95.2 H BUN Total Protein Albumin Ur Specific [place] 1.009 L CXR reviewed right lower lobe infiltrate ekg -appeared to be in sinus rhythm ASSESSMENT AND PLAN: #Sepsis secondary to community acquired pneumonia in immunocompromised man. Possibly superimposed over initial URI Hemoptysis likely from bronchitis or underlying pneumonia. Had similar presentation in October- Pulmonary TB was ruled out at that time. Chest CT this past May did not show any cavitary lesions. Report said resolution of prior infiltrates. -med/surg -ceftriaxone -azithromycin -sputum culture -urine legionella ag -blood cultures x2 -supplemental oxygen prn -monitor o2 sat carefully -hold xarelto at this time due to hemoptysis. Thiss was discussed with patient and he understood. -flu swab #Hypothyroidism -send tsh -c/w synthroid home dose #Hypoalbuminemia #DVT ppx - scds
[2019-07-04] MEDS: ACETAMINOPHEN 325 MG TABLET (FP) PO SCH ×3 (06:46→18:05)
[2019-07-04] MEDS: MAGNESIUM OXIDE 400 MG TABLET (FP) PO SCH ×3 (06:46→22:31)
[2019-07-04 07:35] LABS: BASO % 0.3 % (0-2.0); EOS % 0.6 % (0-4.5); HEMOGLOBIN 12.4 GM/dL (11.7-16.9); LYMPH % 6.6 % (8-40); MCH 30.1 pg (25.7-33.7); MCHC 32.6 g/dl (32.0-35.9); MEAN CELL VOLUME 92.1 fl (80-96); MEAN PLT VOLUME 8.3 fl (7.5-11.1); MONO % 6.5 % (3.8-10.2); PLATELET COUNT 159 K/MM3 (134-434); RBC 4.12 M/mm3 (4.00-5.60); RDW 13.4 % (11.9-15.9); WHITE BLOOD COUNT 10.6 K/mm3 (4.0-10.0)
[2019-07-04 07:41] LABS: INR 1.29 (0.83-1.09); PROTHROMBIN TIME (PATIENT) 15.3 SEC (9.7-13.0)
[2019-07-04] MEDS: LEVOTHYROXINE NA 75 MCG TABLET (FP) PO SCH (07:47)
[2019-07-04 08:18] LABS: ALBUMIN 2.7 g/dl (3.4-5.0); BILIRUBIN,TOTAL 0.8 mg/dL (0.2-1); CALCIUM 8.6 mg/dL (8.5-10.1); MAGNESIUM 1.5 mg/dL (1.8-2.4); POTASSIUM 3.6 mmol/L (3.5-5.1); TOT PROT 5.4 g/dl (6.4-8.2)
[2019-07-04] MEDS ORDERED: CEFTRIAXONE 1 GM/50 ML BAG ONE (08:33)
[2019-07-04] MEDS ORDERED: AZITHROMYCIN IVPB 500 MG/250 ML BAG IVPB ONE (08:33)
[2019-07-04] MEDS ORDERED: MAGNESIUM 1GM/D5W 100ML - 100 ML IVPB IVPB ONE (09:00)
[2019-07-04] MEDS ORDERED: MAGNESIUM 1GM/D5W - 1 GM/100 ML IVPB IVPB ONE (09:02)
[2019-07-04] MEDS: MULTIVITAMINS (DAILY MVI) TABLET (FP) PO SCH (09:10)
[2019-07-04] MEDS: CHOLECALCIFEROL (VIT D3) 1,000 UNIT (25 MCG) TABLET PO SCH (09:11)
[2019-07-04] MEDS: FENOFIBRIC ACID 135 MG CAP PO SCH (09:11)
[2019-07-04] MEDS: SODIUM CHLORIDE 1,000 ML IV SCH ×2 (09:12→18:11)
[2019-07-04] MEDS: BRIMONIDINE TARTRATE 0.2% OPHTHALMIC 5 ML BOTTLE OU SCH ×2 (09:26→22:30)
[2019-07-04] MEDS: TIMOLOL 0.5% OPHTHALMIC SOL 5 ML BOTTLE OU SCH ×2 (09:26→22:30)
[2019-07-04] MEDS: DORZOLAMIDE 2% HCL OPHTHALMIC SOLUTION 10 ML BOTTLE OU SCH ×2 (09:27→22:30)
[2019-07-04] MEDS ORDERED: AZITHROMYCIN IVPB 500 MG in DEXTROSE 5%-WATER - 250 ML IVPB SCH ×2 (10:00→18:00)
[2019-07-04] MEDS ORDERED: PATIENT'S OWN MEDICATION (NON-FORMULARY) (Brimonidine Tartrate/Timolol [Combigan 0.2%-0.5% OU SCH (10:00)
[2019-07-04] MEDS ORDERED: CEFTRIAXONE 1 GM in DEXTROSE 5%-WATER - 50 ML IVPB SCH (10:00)
--- NOTE | 2019-07-04 12:34 | PN ---
Teaching Attending Note Name of Resident: Karen Miller ATTENDING PHYSICIAN STATEMENT I saw and evaluated the patient. I reviewed the resident's note and discussed the case with the resident. I agree with the resident's findings and plan as documented. SUBJECTIVE: feels better already, cont to have small amount of hemoptysis.no CP or SOB. no fever this am . OBJECTIVE: NAd , awake, alert and cooperative HEENT: dry MM, no facial droop, EOMI, round equal pupils, reactive to light. CV: RRR, no MRG Lungs: b.l basilar crackles Ext : No edema or erythema, dry skin and some scabs ABd: soft, NT, ND , NL BS ASSESSMENT AND PLAN: 73 y/o man with h/o laryngeal cancer, diastolic CHF, s/p endoscopic resection , Yajaira cell ca. (s/p Rx/excision, and lymph node dissection ), recent PNA 11/02 , ascending aortic aneurys, hypothyroisidm, BPH, HTN, HLP, CAD, A fib, IgA deficiency and other medical problems who presented with fever and hemoptysis and was found to have RLL PNA 1- RLL CAP: cxray reviewed. CT from Oct, Nov, February 2019 reviewed, complete resolution of infiltrate after Oct PNA - cont ceftriaxone and azithromycin - follow up legionela and Strep ag. - follow blood and sputum cx - I dobut that CT of chest will provide extra information. he might need bronchoscopy in near future as PNA is in same place x 2 - will ask Pulm to evaluate - hemoptysis is likely due to the PNA. - IVF 2- h/o A fib, - cont toprol - hold xarelto, if hemoptysis improves, can resume tomorrow 3- HTN: toprol 4- H/o D CHF: looks volume depleted. not on lasix at home. monitor volume status dispo : HLOC
[2019-07-04 13:57] VITALS: BMI 31.4
--- NOTE | 2019-07-04 14:16 | CON.PULM ---
Consult Consult Specialty:: PULMONARY Referred by:: PMD Reason for Consultation:: PNEUMONIA - History of Present Illness Chief Complaint: HEMOPTYSIS/FEVER/COUGH History of Present Illness: The patient is a year old male, with a significant PMH of esophageal cancer (s/ p endoscopic resection), [facility] Cell cancer (s/p radiation 3.5 years ago), and A -Fib (s/p ablation on Xarelto), who presents to the emergency department with an acute onset of a cough around 3:00pm today, accompanied by hemoptysis. Patient shaking chills/low grade temp and came to ED for evaluation.He also notes prior episode of hemoptysis when he had pneumonia in October of this year. - History Source History Provided By: Patient, Family Member, Medical Record Limitations to Obtaining History: No Limitations - Past Medical History TUFTER HAND: No: Alzheimer's Cardio/Vascular: Yes: AFIB, Aneurysm (ascending aorta 3.9cm), CAD, CHF, HTN, Hyperlipdemia Pulmonary: Yes: Other (RLL nodule 8mm, s/p biopsy at [facility] [place]) Renal/: Yes: Renal Inusuff, BPH Psych: Yes: Anxiety Musculoskeletal: Yes: Chronic low back pain, Osteoarthritis Endocrine: Yes: Hypothyroidism Dermatology: Yes: Melanoma, Other (Alivia cell CA s/p xrt, resection) - Past Surgical History Past Surgical History: Yes: Arthrosocopy (left knee), Hernia Repair - Alcohol/Substance Use Hx Alcohol Use: No Number of Drinks Daily: 3 (gin) History of Substance Use: reports: None - Smoking History Smoking history: Never smoked Have you smoked in the past 12 months: No If you are a former smoker, when did you quit?: 40YRS - Social History ADL: Independent History of Recent Travel: No Home Medications - Allergies Allergies/Adverse Reactions: Allergies Allergy/AdvReac Type Severity Reaction Status Date / Time clindamycin Allergy Verified 07/03/19 17:22 ibuprofen [From Motrin] Allergy Verified 07/03/19 17:22 naproxen sodium [From Aleve] Allergy Verified 07/03/19 17:22 NSAIDS (Non-Steroidal Allergy Verified 07/03/19 17:22 Anti-Inflamma - Home Medications Home Medications: Ambulatory Orders Ca/D3/Mag Ox/Zinc/Tread Booker/Kartik/Bor [Caltrate 600+D Plus Tab Chew] 1 each PO ASDIR Cholecalciferol (Vitamin D3) [Vitamin D3] 1,000 unit PO DAILY 03/13/14 Fenofibrate 160 mg PO DAILY 03/13/14 Multivit-Min/FA/Lycopene/Lut [Centrum Silver Tablet] 1 each PO ASDIR 03/13/14 Omeprazole [Prilosec (RX)] 20 mg PO BID 03/13/14 Rivaroxaban [Xarelto -] 20 mg PO DAILY 03/13/14 Zolpidem Tartrate 10 mg PO ASDIR 03/13/14 Levothyroxine [Synthroid -] 150 mcg PO DAILY 10/17/18 Metoprolol Succinate [Toprol Xl] 100 mg PO BID 10/17/18 Acetaminophen [Tylenol Arthritis] 650 mg PO TID 07/03/19 Atorvastatin Ca [Lipitor] 20 mg PO HS 07/03/19 Brimonidine Tartrate/Timolol [Combigan Eye Drops] 1 drop OU BID 07/03/19 Brinzolamide [Azopt] 1 drop OU BID 07/03/19 Icosapent Ethyl [Vascepa] 1 gm PO BID 07/03/19 Latanoprost/Pf [Latanoprost 0.005% Eye Drop] 1 drop OU HS 07/03/19 Magnesium Oxide [Magnesium] 800 mg PO TID 07/03/19 Family Medical History Family History: Unremarkable Review of Systems - Review of Systems Constitutional: reports: Chills, Fever Eyes: denies: Blurred Vision HENT: denies: Difficult Swallowing Neck: denies: Decreased ROM Cardiovascular: reports: Chest Pain Respiratory: reports: Cough, Exercise Intolerance, Hemoptysis, SOB on Exertion. denies: Orthopnea, Wheezing Gastrointestinal: denies: Abdominal Pain Genitourinary: denies: Burning Physical Exam Vital Sings: Vital Signs Temperature 98.3 F 07/04/19 13:46 Pulse Rate 67 07/04/19 13:46 Respiratory Rate 20 07/04/19 13:46 Blood Pressure 117/70 07/04/19 13:46 O2 Sat by Pulse Oximetry (%) 98 07/04/19 13:46 Constitutional: Yes: No Distress Eyes: Yes: Conjunctiva Clear HENT: Yes: Normocephalic Neck: Yes: Trachea Midline Cardiovascular: Yes: Pulse Irregular, S1, S2 Respiratory: Yes: CTA Bilaterally Gastrointestinal: Yes: Normal Bowel Sounds Edema: No Neurological: Yes: Alert Labs: CBC, BMP 07/04/19 07:00 07/04/19 07:00 Imaging - Results Chest X-ray: Report Reviewed, Image Reviewed Cat Scan: Report Reviewed, Image Reviewed Problem List - Problems (1) Fever Code(s): R50.9 - FEVER, UNSPECIFIED Qualifiers: Fever type: unspecified Qualified Code(s): R50.9 - Fever, unspecified (2) Hemoptysis Code(s): R04.2 - HEMOPTYSIS (3) Pneumonia Code(s): J18.9 - PNEUMONIA, UNSPECIFIED ORGANISM Qualifiers: Pneumonia type: due to unspecified organism Laterality: unspecified laterality Lung location: unspecified part of lung Qualified Code(s): J18.9 - Pneumonia, unspecified organism (4) Atrial fibrillation Code(s): I48.91 - UNSPECIFIED ATRIAL FIBRILLATION Qualifiers: Atrial fibrillation type: paroxysmal Qualified Code(s): I48.0 - Paroxysmal atrial fibrillation (5) CHF (congestive heart failure) Code(s): I50.9 - HEART FAILURE, UNSPECIFIED Qualifiers: Heart failure type: diastolic Heart failure chronicity: chronic Qualified Code(s): I50.32 - Chronic diastolic (congestive) heart failure (6) HTN (hypertension) Code(s): I10 - ESSENTIAL (PRIMARY) HYPERTENSION Qualifiers: Hypertension type: essential hypertension Qualified Code(s): I10 - Essential (primary) hypertension Assessment/Plan CABP WITH HEMOPTYSIS LIKELY RLL INFILTRATE (ON ELIQUIS FOR AF) MULTIPLE MED PROBLEMS PREVIOUSLY LISTED AGREE WITH IV ABS/IF NO IMPROVEMENT WOULD RE CAT SCAN O2 SUPPLEMENTATION/CONTINUE HOME MEDS MONITOR HEMOPTYSIS Raul GOLD MD
--- NOTE | 2019-07-04 14:33 | PN ---
Progress Note (short form) - Note Progress Note: ID consult dictated imp/reccd RLL pneumonia-CAP- continue rocephin/zithromax hemoptysis- most likely due to CAP afib on eliquis f/u cultures Problem List - Problems (1) Pneumonia Code(s): J18.9 - PNEUMONIA, UNSPECIFIED ORGANISM Qualifiers: Pneumonia type: due to unspecified organism Laterality: unspecified laterality Lung location: unspecified part of lung Qualified Code(s): J18.9 - Pneumonia, unspecified organism (2) Hemoptysis Code(s): R04.2 - HEMOPTYSIS (3) Atrial fibrillation Code(s): I48.91 - UNSPECIFIED ATRIAL FIBRILLATION Qualifiers: Atrial fibrillation type: paroxysmal Qualified Code(s): I48.0 - Paroxysmal atrial fibrillation
--- NOTE | 2019-07-04 14:36 | EKG ---
Test Reason : Blood Pressure : / mmHG Vent. Rate : 091 BPM Atrial Rate : 091 BPM P-R Int : 200 ms QRS Dur : 090 ms QT Int : 380 ms P-R-T Axes : 033 -28 062 degrees QTc Int : 467 ms NORMAL SINUS RHYTHM NORMAL ECG WHEN COMPARED WITH ECG OF 17-OCT-2018 14:20, NO SIGNIFICANT CHANGE WAS FOUND Confirmed by DAYA BASSETT MD ([id number]) on 07/04/2019 2:35:35 PM Referred By: Confirmed By:DAYA BASSETT MD
--- NOTE | 2019-07-04 15:21 | CONS ---
INFECTIOUS DISEASE CONSULTATION DATE OF CONSULTATION: DATE OF DICTATION: 07/04/2019 REQUESTED BY: The hospitalist service. HISTORY OF PRESENT ILLNESS: This is a 73-year-old man. 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 He had finished all his chemotherapy and RT at least 4 years ago. He was recently hospitalized in October of this year with hemoptysis and right-sided pneumonia. He had sputum AFBs done at that time that were negative. He was treated for bacterial pneumonia with good resolution; followup CAT scan in February of this year that showed no evidence of pneumonia. He now reports that he was in his usual state of health, which at baseline is fairly severe back pain when he ambulates due to spinal stenosis and some chronic dyspnea on exertion. He went to have lunch with his friends in [facility] and he had a nice lunch. He enjoyed himself. They walked from the lunch place 3 blocks to a dessert place. Had dessert. He walked back to the parking garage, got in his car, and came home. He began to have chills at home. He had right-sided chest pain, generalized weakness, and a cough with dark blood. He called his primary care doctor who told him to come to the emergency room. He denies any fevers or chills. He has not lost any weight and he is at his baseline in terms of his breathing. He reports this morning, he coughed up some blood-tinged sputum, but nothing like what happened yesterday. He has no abdominal pain. No diarrhea. He has no sick contacts and his recent travel they went to [place] weekend. In the emergency room, he had a fever of 102.6. Chest x-ray was noted to have a right lower lobe infiltrate and he was given ceftriaxone and Zithromax. He is feeling markedly better. PAST MEDICAL HISTORY: Is notable for esophageal cancer, Alivia cell cancer of the face, hypertension, hyperlipidemia, coronary artery disease, diastolic heart failure, atrial fibrillation on Xarelto, ascending aortic aneurysm, hypothyroidism, BPH, and a history of pneumonia in October of this year. 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 ALLERGIES: He is allergic to CLINDAMYCIN and IBUPROFEN. SOCIAL HISTORY: He lives at home with his . 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 There is no family history of TB. He has had no TB exposure and his TB test in October was unremarkable. FAMILY HISTORY: Noncontributory. His parents are both from [place]. MEDICATIONS AT HOME: Include calcium, vitamin D, Fenofibrate, centrum, omeprazole, Xarelto, Ambien, Synthroid, metoprolol, atorvastatin, Combigan eye drops, Vascepa, and magnesium. REVIEW OF SYSTEMS: He denies any cough when he eats or drinks liquids. He has not had any loss of consciousness. He has chronic back pain he attributes to his spinal stenosis and he has chronic dyspnea on exertion. PHYSICAL EXAMINATION: Vital Signs: His T-maximum was 102.6, current temperature is 98.3, pulse is 67, blood pressure 117/70, respiratory rate is 20. He weighs 99 kg. He is saturating 98% on room air. HEENT: He is normocephalic. His eyes are anicteric. He has no oral lesions. Neck: Supple. Lungs: Have diminished breath sounds at the bases. Heart: Regular rate and rhythm. Abdomen: Soft. Nontender. Extremities: Without edema. Skin: He has no rash. LABORATORY DATA: White count is 10.6, hemoglobin 12.4, platelets are 159. INR is 1.2. BUN 16 and creatinine 1. LFTs are normal. sputum and blood cultures are pending. Urine antigens are negative for legionella and pneumococcus. Of note, he reports being up-to-date on both Prevnar and Pneumovax and all his vaccines. In summary, this is a 73-year-old man admitted with community-acquired pneumonia. I would continue him on ceftriaxone and Zithromax at this time and follow up his cultures. Of note, his prior CAT scan raises a question of whether he has an element of pulmonary hypertension which may be accounting for his chronic dyspnea. He would need to follow up with Pulmonary for this. hemoptysis again which appears to be improving. Followed above per Pulmonary. I think at this point, his hemoptysis is consistent with his acute pneumonia. He has had a recent evaluation for TB; no need to repeat this. Would continue IV antibiotics at this time. Ceftriaxone and Zithromax appear appropriate, while we are awaiting his cultures. Overall, he is clinically markedly improved. MARCELINA BRAGG M.D. [id number]
--- NOTE | 2019-07-04 17:16 | PN ---
Physical Exam: SUBJECTIVE: Patient seen and examined OBJECTIVE: Vital Signs Period Temp Pulse Resp BP Sys/Valenzuela Pulse Ox Last 24 Hr 98.3 F-102.6 F 66-101 16-20 104-157/52-89 95-98 GENERAL: The patient is awake, alert, and fully oriented, in no acute distress. HEAD: Normal with no signs of trauma. EYES: PERRL, extraocular movements intact, sclera anicteric, conjunctiva clear. No ptosis. ENT: Ears normal, nares patent, oropharynx clear without exudates, moist mucous membranes. NECK: Trachea midline, full range of motion, supple. LUNGS: Breath sounds equal, clear to auscultation bilaterally, no wheezes, no crackles, no accessory muscle use. HEART: Regular rate and rhythm, S1, S2 without murmur, rub or gallop. ABDOMEN: Soft, nontender, nondistended, normoactive bowel sounds, no guarding, no rebound, no hepatosplenomegaly, no masses. EXTREMITIES: 2+ pulses, warm, well-perfused, no edema. NEUROLOGICAL: Cranial nerves II through XII grossly intact. Normal speech, gait not observed. PSYCH: Normal mood, normal affect. SKIN: Warm, dry, normal turgor, no rashes or lesions noted Laboratory Results - last 24 hr 07/03/19 07/03/19 07/03/19 18:00 18:00 18:00 WBC 6.4 RBC 4.70 Hgb 14.0 Hct 43.1 MCV 91.8 MCH 29.8 MCHC 32.4 RDW 13.5 D Plt Count 185 MPV 8.5 Absolute Neuts (auto) 5.5 Neutrophils % 86.9 H D Lymphocytes % 5.8 L D Monocytes % 6.3 Eosinophils % 0.7 D Basophils % 0.3 Nucleated RBC % 0 PT with INR INR PTT (Actin FS) 36.4 VBG pH POC VBG pCO2 POC VBG pO2 VBG HCO3 VBG O2 Sat (Marlene) VBG Base Excess Sodium 138 Potassium 3.5 Chloride 106 Carbon Dioxide 23 Anion Gap 8 BUN 22.6 H Creatinine 1.2 Est GFR (CKD-EPI)AfAm 68.63 Est GFR (CKD-EPI)NonAf 59.21 Random Glucose 106 Lactic Acid Calcium 8.9 Magnesium Total Bilirubin 0.8 AST 18 ALT 16 Alkaline Phosphatase 60 Troponin I < 0.02 Total Protein 6.3 L Albumin 3.2 L TSH Urine Color Urine Appearance Urine pH Ur Specific [place] Urine Protein Urine Glucose (UA) Urine Ketones Urine Blood Urine Nitrite Urine Bilirubin Urine Urobilinogen Ur Leukocyte Esterase 07/03/19 07/03/19 07/03/19 18:00 18:00 18:00 WBC RBC Hgb Hct MCV MCH MCHC RDW Plt Count MPV Absolute Neuts (auto) Neutrophils % Lymphocytes % Monocytes % Eosinophils % Basophils % Nucleated RBC % PT with INR 17.30 H INR 1.46 H PTT (Actin FS) VBG pH 7.48 H POC VBG pCO2 30.3 L POC VBG pO2 73.9 H VBG HCO3 22.3 L VBG O2 Sat (Marlene) 95.2 H VBG Base Excess 0.1 Sodium Potassium Chloride Carbon Dioxide Anion Gap BUN Creatinine Est GFR (CKD-EPI)AfAm Est GFR (CKD-EPI)NonAf Random Glucose Lactic Acid 1.5 Calcium Magnesium Total Bilirubin AST ALT Alkaline Phosphatase Troponin I Total Protein Albumin TSH Urine Color Urine Appearance Urine pH Ur Specific [place] Urine Protein Urine Glucose (UA) Urine Ketones Urine Blood Urine Nitrite Urine Bilirubin Urine Urobilinogen Ur Leukocyte Esterase 07/03/19 07/03/19 07/04/19 22:05 22:10 07:00 WBC 10.6 H RBC 4.12 Hgb 12.4 Hct 38.0 MCV 92.1 MCH 30.1 MCHC 32.6 RDW 13.4 Plt Count 159 MPV 8.3 Absolute Neuts (auto) 9.1 H Neutrophils % 86.0 H Lymphocytes % 6.6 L Monocytes % 6.5 Eosinophils % 0.6 Basophils % 0.3 Nucleated RBC % 0 PT with INR INR PTT (Actin FS) VBG pH POC VBG pCO2 POC VBG pO2 VBG HCO3 VBG O2 Sat (Marlene) VBG Base Excess Sodium Potassium Chloride Carbon Dioxide Anion Gap BUN Creatinine Est GFR (CKD-EPI)AfAm Est GFR (CKD-EPI)NonAf Random Glucose Lactic Acid 1.5 Calcium Magnesium Total Bilirubin AST ALT Alkaline Phosphatase Troponin I Total Protein Albumin TSH Urine Color Yellow Urine Appearance Clear Urine pH 5.5 Ur Specific [place] 1.009 L Urine Protein Negative Urine Glucose (UA) Negative Urine Ketones Negative Urine Blood Negative Urine Nitrite Negative Urine Bilirubin Negative Urine Urobilinogen 0.2 Ur Leukocyte Esterase Negative 07/04/19 07/04/19 07:00 07:00 WBC RBC Hgb Hct MCV MCH MCHC RDW Plt Count MPV Absolute Neuts (auto) Neutrophils % Lymphocytes % Monocytes % Eosinophils % Basophils % Nucleated RBC % PT with INR 15.30 H INR 1.29 H PTT (Actin FS) 36.0 VBG pH POC VBG pCO2 POC VBG pO2 VBG HCO3 VBG O2 Sat (Marlene) VBG Base Excess Sodium 141 Potassium 3.6 Chloride 111 H Carbon Dioxide 22 Anion Gap 9 BUN 16.0 Creatinine 1.0 Est GFR (CKD-EPI)AfAm 85.55 Est GFR (CKD-EPI)NonAf 73.82 Random Glucose 101 Lactic Acid Calcium 8.6 Magnesium 1.5 L Total Bilirubin 0.8 AST 14 L ALT 14 Alkaline Phosphatase 40 L Troponin I Total Protein 5.4 L Albumin 2.7 L TSH 2.67 Urine Color Urine Appearance Urine pH Ur Specific [place] Urine Protein Urine Glucose (UA) Urine Ketones Urine Blood Urine Nitrite Urine Bilirubin Urine Urobilinogen Ur Leukocyte Esterase Active Medications Generic Name Dose Route Start Last Admin Trade Name Zeq PRN Reason Stop Dose Admin Acetaminophen 650 mg 07/03/19 23:30 07/04/19 12:01 Tylenol - PO Not Given Q6HPO HARSHAL Atorvastatin Calcium 20 mg 07/04/19 22:00 Lipitor - PO HS HARSHAL Brimonidine Tartrate 1 drop 07/04/19 10:00 07/04/19 09:26 Alphagan 0.2% - OU 1 drop BID HARSHAL Administration Cholecalciferol 1,000 unit 07/04/19 10:00 07/04/19 09:11 Vitamin D3 - PO 1,000 unit DAILY HARSHAL Administration Dorzolamide HCl 1 drop 07/04/19 10:00 07/04/19 09:27 Trusopt 2% OU 1 drop BID HARSHAL Administration Fenofibric Acid 135 mg 07/04/19 10:00 07/04/19 09:11 Trilipix - PO 135 mg DAILY HARSHAL Administration Sodium Chloride 1,000 mls @ 75 mls/hr 07/04/19 10:00 07/04/19 09:12 Normal Saline - IV 75 mls/hr ASDIR HARSHAL Administration Azithromycin 500 mg/ Dextrose 250 mls @ 250 mls/hr 07/04/19 18:00 IVPB Q24H HARSHAL Ceftriaxone Sodium 1 gm/ 50 mls @ 200 mls/hr 07/04/19 18:00 Dextrose IVPB Q24H [facility] Protocol Latanoprost 1 drop 07/04/19 22:00 Xalatan 0.005% Eye Drops - OU HS HARSHAL Levothyroxine Sodium 150 mcg 07/04/19 07:00 07/04/19 07:47 Synthroid - PO 150 mcg DAILY@0700 HARSHAL Administration Magnesium Oxide 800 mg 07/04/19 06:00 07/04/19 14:55 Mag-Ox - PO 800 mg TID HARSHAL Administration Metoprolol Succinate 100 mg 07/04/19 10:00 07/04/19 09:11 Toprol Xl - PO 100 mg BID HARSHAL Administration Multivitamins/Minerals/Vitamin C 1 tab 07/04/19 00:13 07/04/19 09:10 Tab-A-Vit - PO 1 tab DAILY HARSHAL Administration [id number]-2-[id number] Ethyl Esters 1 gm 07/04/19 10:00 Lovaza - PO BID HARSHAL Timolol Maleate 1 drop 07/04/19 10:00 07/04/19 09:26 Timoptic 0.5% OU 1 drop BID HARSHAL Administration Zolpidem Tartrate 5 mg 07/04/19 22:00 Ambien - PO HS PRN INSOMNIA ASSESSMENT/PLAN: 73 y/o man with h/o IgA deficiency,laryngeal cancer, diastolic CHF, s/p endoscopic resection , Yajaiar cell ca. (s/p Rx/excision, and lymph node dissection ), recent PNA 11/02, ascending aortic aneurys, hypothyroisidm, BPH, HTN, HLP, CAD, A fib, and other medical problems who presented with fever and hemoptysis and was found to have RLL PNA RLL CAP chest xray confirmed RLL infiltrate/atelectasis.Previous CT reviewed with complete resolution of Ga PNA contimuing ceftriaxone and azithromycin follow up legionela and Strep ag. blood and sputum cx pending hemoptysis is likely due to the PNA.monitor IVF As per Pulm, continue Abx if no change to get CT scan A fib cont metoprol 100mg BID hold xarelto, if hemoptysis improves, can resume tomorrow HTN metoprol 100mg BID HLD lipitor, trilipix Glaucoma home meds DVT SCDs Visit type - Emergency Visit Emergency Visit: Yes ED Registration Date: 07/03/19 Care time: The patient presented to the Emergency Department on the above date and was hospitalized for further evaluation of their emergent condition. - New Patient This patient is new to me today: Yes Date on this admission: 07/04/19 - Critical Care Critical Care patient: No - Discharge Referral Referred to [facility] Med P.C[facility] No ATTENDING PHYSICIAN STATEMENT I saw and evaluated the patient. I reviewed the resident's note and discussed the case with the resident. I agree with the resident's findings and plan as documented. SUBJECTIVE: OBJECTIVE: ASSESSMENT AND PLAN:
[2019-07-04] MEDS ORDERED: cefTRIAXone SODIUM 1 GM VIAL ONE ×2 (17:41)
[2019-07-04] MEDS ORDERED: DEXTROSE 5%-WATER - 50 ML IVPB ONE ×2 (17:41)
[2019-07-04] MEDS: OMEGA-3 ACID ETHYL ESTERS (FATTY-ACIDS) 1 GM CAPSULE (FP) PO SCH ×2 (17:55→22:31)
[2019-07-04] MEDS: CEFTRIAXONE 1 GM in DEXTROSE 5%-WATER - 50 ML IVPB SCH (18:05)
[2019-07-04] MEDS ORDERED: ZOLPIDEM TARTRATE 5 MG TABLET PO PRN (22:00)
[2019-07-04] MEDS: LATANOPROST 0.005% OPHTH SOLN 2.5ML BOTTLE OU SCH (22:30)
[2019-07-04] MEDS: ATORVASTATIN CA 20 MG TABLET (FP) PO SCH (22:31)
[2019-07-05] MEDS: ACETAMINOPHEN 325 MG TABLET (FP) PO SCH ×4 (00:42→22:04)
[2019-07-05] MEDS: LEVOTHYROXINE NA 75 MCG TABLET (FP) PO SCH (06:24)
[2019-07-05] MEDS: MAGNESIUM OXIDE 400 MG TABLET (FP) PO SCH ×3 (06:25→22:02)
[2019-07-05 07:07] LABS: BASO % 0.3 % (0-2.0); HEMATOCRIT 34.7 % (35.4-49); HEMOGLOBIN 11.5 GM/dL (11.7-16.9); LYMPH % 10.4 % (8-40); MCH 30.2 pg (25.7-33.7); MCHC 33.1 g/dl (32.0-35.9); MEAN CELL VOLUME 91.1 fl (80-96); MEAN PLT VOLUME 8.3 fl (7.5-11.1); MONO % 6.1 % (3.8-10.2); NEUT % 81.2 % (42.8-82.8); PLATELET COUNT 155 K/MM3 (134-434); RBC 3.81 M/mm3 (4.00-5.60); RDW 13.8 % (11.9-15.9); WHITE BLOOD COUNT 7.5 K/mm3 (4.0-10.0)
[2019-07-05 07:22] LABS: BLOOD UREA NITROGEN 16.5 mg/dL (7-18); CALCIUM 8.8 mg/dL (8.5-10.1); POTASSIUM 3.9 mmol/L (3.5-5.1)
[2019-07-05] MEDS ORDERED: PT OWN MED DRAWER 7, Y5N ONE (08:39)
--- NOTE | 2019-07-05 09:42 | PN ---
Physical Exam: SUBJECTIVE: Patient seen and examined, Minimal cough and no chest pain since yesterday. No hemoptysis OBJECTIVE: Vital Signs Period Temp Pulse Resp BP Sys/Valenzuela Pulse Ox Last 24 Hr 97.9 F-99.3 F 57-75 18-20 104-133/52-93 97-98 GENERAL: The patient is awake, alert, and fully oriented, in no acute distress. HEAD: Normal with no signs of trauma. EYES: PERRL, extraocular movements intact, sclera anicteric, conjunctiva clear. No ptosis. ENT: oropharynx clear without exudates, moist mucous membranes LUNGS: Breath sounds equal, clear to auscultation bilaterally, no wheezes, no crackles, no accessory muscle use. HEART: Regular rate and rhythm, S1, S2 without murmur, rub or gallop. ABDOMEN: Soft, nontender, nondistended, normoactive bowel sounds, no guarding, no rebound, no hepatosplenomegaly, no masses. EXTREMITIES: 2+ pulses, warm, well-perfused, no edema. SKIN: Warm, dry, normal turgor, actinic keratosis all over body Laboratory Results - last 24 hr 07/05/19 07/05/19 06:35 06:35 WBC 7.5 RBC 3.81 L Hgb 11.5 L Hct 34.7 L MCV 91.1 MCH 30.2 MCHC 33.1 RDW 13.8 Plt Count 155 MPV 8.3 Absolute Neuts (auto) 6.1 Neutrophils % 81.2 Lymphocytes % 10.4 D Monocytes % 6.1 Eosinophils % 2.0 D Basophils % 0.3 Nucleated RBC % 0 Sodium 141 Potassium 3.9 Chloride 111 H Carbon Dioxide 22 Anion Gap 7 L BUN 16.5 Creatinine 1.0 Est GFR (CKD-EPI)AfAm 85.55 Est GFR (CKD-EPI)NonAf 73.82 Random Glucose 95 Calcium 8.8 Active Medications Generic Name Dose Route Start Last Admin Trade Name Freq PRN Reason Stop Dose Admin Acetaminophen 650 mg 07/03/19 23:30 07/05/19 06:28 Tylenol - PO 650 mg Q6HPO HARSHAL Administration Atorvastatin Calcium 20 mg 07/04/19 22:00 07/04/19 22:31 Lipitor - PO 20 mg HS HARSHAL Administration Brimonidine Tartrate 1 drop 07/04/19 10:00 07/04/19 22:30 Alphagan 0.2% - OU Not Given BID HARSHAL Cholecalciferol 1,000 unit 07/04/19 10:00 07/04/19 09:11 Vitamin D3 - PO 1,000 unit DAILY HARSHAL Administration Dorzolamide HCl 1 drop 07/04/19 10:00 07/04/19 22:30 Trusopt 2% OU Not Given BID HARSHAL Fenofibric Acid 135 mg 07/04/19 10:00 07/04/19 09:11 Trilipix - PO 135 mg DAILY HARSHAL Administration Sodium Chloride 1,000 mls @ 75 mls/hr 07/04/19 10:00 07/04/19 18:11 Normal Saline - IV 75 mls/hr ASDIR HARSHAL Administration Ceftriaxone Sodium 1 gm/ 50 mls @ 200 mls/hr 07/04/19 18:00 07/04/19 18:05 Dextrose IVPB 200 mls/hr Q24H HARSHAL Administration Protocol Azithromycin 500 mg in 250 mls @ 250 mls/hr 07/05/19 08:30 Zithromax 500mg Ivpb (Pre-Docked) IVPB 07/06/19 09:29 Q24H HARSHAL Latanoprost 1 drop 07/04/19 22:00 07/04/19 22:30 Xalatan 0.005% Eye Drops - OU Not Given HS [facility] Levothyroxine Sodium 150 mcg 07/04/19 07:00 07/05/19 06:24 Synthroid - PO 150 mcg DAILY@0700 HARSHAL Administration Magnesium Oxide 800 mg 07/04/19 06:00 07/05/19 06:25 Mag-Ox - PO 800 mg TID HARSHAL Administration Metoprolol Succinate 100 mg 07/04/19 10:00 07/04/19 22:31 Toprol Xl - PO 100 mg BID HARSHAL Administration Multivitamins/Minerals/Vitamin C 1 tab 07/04/19 00:13 07/04/19 09:10 Tab-A-Vit - PO 1 tab DAILY HARSHAL Administration Dnywr-3-[id number] Ethyl Esters 1 gm 07/04/19 10:00 07/04/19 22:31 Lovaza - PO 1 gm BID HARSHAL Administration Timolol Maleate 1 drop 07/04/19 10:00 07/04/19 22:30 Timoptic 0.5% OU Not Given BID HARSHAL Zolpidem Tartrate 5 mg 07/04/19 22:00 Ambien - PO HS PRN INSOMNIA ASSESSMENT/PLAN: 73 y/o man with h/o IgA deficiency,laryngeal cancer, diastolic CHF, s/p endoscopic resection , Yajaira cell ca. (s/p Rx/excision, and lymph node dissection ), recent PNA 11/02, ascending aortic aneurys, hypothyroisidm, BPH, HTN, HLP, CAD, A fib, and other medical problems who presented with fever and hemoptysis and was found to have RLL PNA RLL CAP contimuing ceftriaxone and azithromycin legionela and Strep ag negative blood cx neg x1d and sputum cx grew normal resp evens hemoptysis is likely due to the PNA.monitor IVF As per Pulm, continue Abx if no change to get CT scan A fib cont metoprol 100mg BID hold xarelto, if hemoptysis improves, can resume HTN metoprol 100mg BID HLD lipitor, trilipix Glaucoma home meds DVT SCDs Visit type - Emergency Visit Emergency Visit: Yes ED Registration Date: 07/03/19 Care time: The patient presented to the Emergency Department on the above date and was hospitalized for further evaluation of their emergent condition. - New Patient This patient is new to me today: No - Critical Care Critical Care patient: No - Discharge Referral Referred to [facility] Med P.C.: No ATTENDING PHYSICIAN STATEMENT I saw and evaluated the patient. I reviewed the resident's note and discussed the case with the resident. I agree with the resident's findings and plan as documented. SUBJECTIVE: OBJECTIVE: ASSESSMENT AND PLAN:
[2019-07-05] MEDS: SODIUM CHLORIDE 1,000 ML IV SCH (10:08)
[2019-07-05] MEDS: AZITHROMYCIN IVPB 500 MG/250 ML BAG IVPB SCH (10:08)
[2019-07-05] MEDS: FENOFIBRIC ACID 135 MG CAP PO SCH (10:09)
[2019-07-05] MEDS: MULTIVITAMINS (DAILY MVI) TABLET (FP) PO SCH (10:09)
[2019-07-05] MEDS: OMEGA-3 ACID ETHYL ESTERS (FATTY-ACIDS) 1 GM CAPSULE (FP) PO SCH ×2 (10:09→22:02)
[2019-07-05] MEDS: CHOLECALCIFEROL (VIT D3) 1,000 UNIT (25 MCG) TABLET PO SCH (10:09)
[2019-07-05] MEDS: DORZOLAMIDE 2% HCL OPHTHALMIC SOLUTION 10 ML BOTTLE OU SCH ×2 (10:39→22:06)
[2019-07-05] MEDS: BRIMONIDINE TARTRATE 0.2% OPHTHALMIC 5 ML BOTTLE OU SCH ×2 (10:40→22:12)
[2019-07-05] MEDS: TIMOLOL 0.5% OPHTHALMIC SOL 5 ML BOTTLE OU SCH ×3 (10:40→22:05)
--- NOTE | 2019-07-05 11:23 | PN ---
Progress Note, Physician History of Present Illness: PULMONARY ALERT,OOB-CHAIR,-SOB,LESS COUGH,-HEMOPTYSIS - Current Medication List Current Medications: Active Medications Acetaminophen (Tylenol -) 650 mg PO Q6HPO [facility] Last Admin: 07/05/19 06:28 Dose: 650 mg Atorvastatin Calcium (Lipitor -) 20 mg PO HS [facility] Last Admin: 07/04/19 22:31 Dose: 20 mg Brimonidine Tartrate (Alphagan 0.2% -) 1 drop OU BID [facility] Last Admin: 07/05/19 10:40 Dose: 1 drop Cholecalciferol (Vitamin D3 -) 1,000 unit PO DAILY [facility] Last Admin: 07/05/19 10:09 Dose: 1,000 unit Dorzolamide HCl (Trusopt 2%) 1 drop OU BID [facility] Last Admin: 07/05/19 10:39 Dose: 1 drop Fenofibric Acid (Trilipix -) 135 mg PO DAILY [facility] Last Admin: 07/05/19 10:09 Dose: 135 mg Sodium Chloride (Normal Saline -) 1,000 mls @ 75 mls/hr IV ASDIR HARSHAL Last Admin: 07/05/19 10:08 Dose: 75 mls/hr Ceftriaxone Sodium 1 gm/ (Dextrose) 50 mls @ 200 mls/hr IVPB Q24H [facility]; Protocol Last Admin: 07/04/19 18:05 Dose: 200 mls/hr Azithromycin (Zithromax 500mg Ivpb (Pre-Docked)) 500 mg in 250 mls @ 250 mls/ hr IVPB Q24H HARSHAL Stop: 07/06/19 09:29 Last Admin: 07/05/19 10:08 Dose: 250 mls/hr Latanoprost (Xalatan 0.005% Eye Drops -) 1 drop OU [facility] Last Admin: 07/04/19 22:30 Dose: Not Given Levothyroxine Sodium (Synthroid -) 150 mcg PO DAILY@0700 [facility] Last Admin: 07/05/19 06:24 Dose: 150 mcg Magnesium Oxide (Mag-Ox -) 800 mg PO TID [facility] Last Admin: 07/05/19 06:25 Dose: 800 mg Metoprolol Succinate (Toprol Xl -) 100 mg PO BID [facility] Last Admin: 07/05/19 10:09 Dose: 100 mg Multivitamins/Minerals/Vitamin C (Tab-A-Vit -) 1 tab PO DAILY [facility] Last Admin: 07/05/19 10:09 Dose: 1 tab [id number] Ethyl Esters (Lovaza -) 1 gm PO BID [facility] Last Admin: 07/05/19 10:09 Dose: 1 gm Rivaroxaban (Xarelto) 20 mg PO DAILY@1800 HARSHAL Timolol Maleate (Timoptic 0.5%) 1 drop OU BID [facility] Last Admin: 07/05/19 10:42 Dose: Not Given Zolpidem Tartrate (Ambien -) 5 mg PO HS PRN PRN Reason: INSOMNIA - Objective Vital Signs: Vital Signs Temperature 98.1 F 07/05/19 06:17 Pulse Rate 57 L 07/05/19 06:17 Respiratory Rate 20 07/05/19 06:17 Blood Pressure 125/93 07/05/19 06:17 O2 Sat by Pulse Oximetry (%) 98 07/04/19 21:00 Constitutional: Yes: Well Nourished, Calm Eyes: Yes: WNL HENT: Yes: WNL Neck: Yes: WNL Cardiovascular: Yes: Pulse Irregular, S1, S2 Respiratory: Yes: Rales (CRACKLES R BASE) Gastrointestinal: Yes: Normal Bowel Sounds, Soft Extremities: Yes: WNL Edema: No Labs: CBC, BMP 07/05/19 06:35 07/05/19 06:35 INR, PTT INR 1.29 (0.83-1.09) H 07/04/19 07:00 Assessment/Plan Problem List - Problems (1) Fever Code(s): R50.9 - FEVER, UNSPECIFIED Qualifiers: Fever type: unspecified Qualified Code(s): R50.9 - Fever, unspecified (2) Hemoptysis Code(s): R04.2 - HEMOPTYSIS (3) Pneumonia Code(s): J18.9 - PNEUMONIA, UNSPECIFIED ORGANISM Qualifiers: Pneumonia type: due to unspecified organism Laterality: unspecified laterality Lung location: unspecified part of lung Qualified Code(s): J18.9 - Pneumonia, unspecified organism (4) Atrial fibrillation Code(s): I48.91 - UNSPECIFIED ATRIAL FIBRILLATION Qualifiers: Atrial fibrillation type: paroxysmal Qualified Code(s): I48.0 - Paroxysmal atrial fibrillation (5) CHF (congestive heart failure) Code(s): I50.9 - HEART FAILURE, UNSPECIFIED Qualifiers: Heart failure type: diastolic Heart failure chronicity: chronic Qualified Code(s): I50.32 - Chronic diastolic (congestive) heart failure (6) HTN (hypertension) Code(s): I10 - ESSENTIAL (PRIMARY) HYPERTENSION Qualifiers: Hypertension type: essential hypertension Qualified Code(s): I10 - Essential (primary) hypertension Assessment/Plan RLL PNEUMONIA HEMOPTYSIS AFIB CHF IV ABS O2 SUPPLEMENTATION CONTINUE HOME MEDS MONITOR HEMOPTYSIS CHEST CT DR BRAYDEN OWEN
--- NOTE | 2019-07-05 11:51 | PN ---
Teaching Attending Note Name of Resident: Paola Neville ATTENDING PHYSICIAN STATEMENT I saw and evaluated the patient. I reviewed the resident's note and discussed the case with the resident. I agree with the resident's findings and plan as documented. SUBJECTIVE: No fever or chills. feels much better. No NEVILLE. no CP or SOB. OBJECTIVE: NAD , awake, alert and cooperative HEENT: MMM, no facial droop CV: RRR, no MRG Lungs: minimal fine b.l basilar crackles Ext : No edema or erythema, dry skin and some scabs ASSESSMENT AND PLAN: 73 y/o man with h/o laryngeal cancer, diastolic CHF, s/p endoscopic resection , Yajaira cell ca. (s/p Rx/excision, and lymph node dissection ), recent PNA 11/02 , ascending aortic aneurysm, hypothyroisidm, BPH, HTN, HLP, CAD, A fib, IgA deficiency and other medical problems who presented with fever and hemoptysis and was found to have RLL PNA 1- RLL CAP: - cont ceftriaxone and azithromycin day 2 - legionela and Strep ag Neg . - follow blood cx. sputum cx neg - IVF , might dc fluids tomorrow 2- h/o A fib, - cont toprol - resume xarelto 3- HTN: toprol 4- H/o D CHF: no signs of fluid overload Dispo : HLOC
--- NOTE | 2019-07-05 13:28 | PN ---
Progress Note (short form) - Note Progress Note: feels improved no hemoptysis Vital Signs Period Temp Pulse Resp BP Sys/Valenzuela Pulse Ox Last 24 Hr 97.9 F-98.7 F 57-67 20-20 116-133/69-93 98-98 cor-rrr lungs decreased bs at bases abd soft,nt ext no edema CBC, BMP 07/05/19 06:35 07/05/19 06:35 Microbiology 07/04/19 11:00 Sputum - Expectorated Gram Stain - Final 07/04/19 11:00 Sputum - Expectorated Sputum Culture - Preliminary NORMAL RESPIRATORY JAXON 07/03/19 22:10 Urine - Urine Clean Catch Urine Culture - Final NO GROWTH OBTAINED 07/03/19 18:05 Blood - Peripheral Venous Blood Culture - Preliminary NO GROWTH OBTAINED AFTER 24 HOURS, INCUBATION TO CONTINUE FOR 4 DAYS. 07/03/19 18:00 Blood - Peripheral Venous Blood Culture - Preliminary NO GROWTH OBTAINED AFTER 24 HOURS, INCUBATION TO CONTINUE FOR 4 DAYS. 07/04/19 07:30 Urine For Antigen Detection Legionella Antigen - Final 07/04/19 07:30 Urine For Antigen Detection Streptococcus pneumoniae Antigen (M - Final Current Medications Acetaminophen (Tylenol -) 650 mg PO Q6HPO [facility] Last Admin: 07/05/19 06:28 Dose: 650 mg Atorvastatin Calcium (Lipitor -) 20 mg PO HS [facility] Last Admin: 07/04/19 22:31 Dose: 20 mg Brimonidine Tartrate (Alphagan 0.2% -) 1 drop OU BID [facility] Last Admin: 07/05/19 10:40 Dose: 1 drop Cholecalciferol (Vitamin D3 -) 1,000 unit PO DAILY [facility] Last Admin: 07/05/19 10:09 Dose: 1,000 unit Dorzolamide HCl (Trusopt 2%) 1 drop OU BID [facility] Last Admin: 07/05/19 10:39 Dose: 1 drop Fenofibric Acid (Trilipix -) 135 mg PO DAILY [facility] Last Admin: 07/05/19 10:09 Dose: 135 mg Sodium Chloride (Normal Saline -) 1,000 mls @ 75 mls/hr IV ASDIR [facility] Last Admin: 07/05/19 10:08 Dose: 75 mls/hr Ceftriaxone Sodium 1 gm/ (Dextrose) 50 mls @ 200 mls/hr IVPB Q24H [facility]; Protocol Last Admin: 07/04/19 18:05 Dose: 200 mls/hr Azithromycin (Zithromax 500mg Ivpb (Pre-Docked)) 500 mg in 250 mls @ 250 mls/ hr IVPB Q24H [facility] Stop: 07/06/19 09:29 Last Admin: 07/05/19 10:08 Dose: 250 mls/hr Latanoprost (Xalatan 0.005% Eye Drops -) 1 drop OU HS [facility] Last Admin: 07/04/19 22:30 Dose: Not Given Levothyroxine Sodium (Synthroid -) 150 mcg PO DAILY@0700 [facility] Last Admin: 07/05/19 06:24 Dose: 150 mcg Magnesium Oxide (Mag-Ox -) 800 mg PO TID [facility] Last Admin: 07/05/19 06:25 Dose: 800 mg Metoprolol Succinate (Toprol Xl -) 100 mg PO BID [facility] Last Admin: 07/05/19 10:09 Dose: 100 mg Multivitamins/Minerals/Vitamin C (Tab-A-Vit -) 1 tab PO DAILY [facility] Last Admin: 07/05/19 10:09 Dose: 1 tab Lcwro-0-Iegn Ethyl Esters (Lovaza -) 1 gm PO BID [facility] Last Admin: 07/05/19 10:09 Dose: 1 gm Rivaroxaban (Xarelto) 20 mg PO DAILY@1800 [facility] Timolol Maleate (Timoptic 0.5%) 1 drop OU BID [facility] Last Admin: 07/05/19 10:42 Dose: Not Given Zolpidem Tartrate (Ambien -) 5 mg PO HS PRN PRN Reason: INSOMNIA imp/reccd RLL pneumonia-CAP- continue rocephin/zithromax day #3 ct scan ordered by pulmonary hopefully home tomorrow on po ceftin to complete 7 days (after am iv antibiotics ) hemoptysis- most likely due to CAP afib on eliquis d/w patient and at bedside Problem List - Problems (1) Pneumonia Code(s): J18.9 - PNEUMONIA, UNSPECIFIED ORGANISM Qualifiers: Pneumonia type: due to unspecified organism Laterality: unspecified laterality Lung location: unspecified part of lung Qualified Code(s): J18.9 - Pneumonia, unspecified organism (2) Hemoptysis Code(s): R04.2 - HEMOPTYSIS (3) Atrial fibrillation Code(s): I48.91 - UNSPECIFIED ATRIAL FIBRILLATION Qualifiers: Atrial fibrillation type: paroxysmal Qualified Code(s): I48.0 - Paroxysmal atrial fibrillation
[2019-07-05] MEDS ORDERED: cefTRIAXone SODIUM 1 GM VIAL ONE (17:50)
[2019-07-05] MEDS ORDERED: DEXTROSE 5%-WATER - 50 ML IVPB ONE (17:50)
[2019-07-05] MEDS ORDERED: RIVAROXABAN 20 MG TABLET PO SCH (18:00)
[2019-07-05] MEDS: CEFTRIAXONE 1 GM in DEXTROSE 5%-WATER - 50 ML IVPB SCH (18:28)
[2019-07-05] MEDS: ATORVASTATIN CA 20 MG TABLET (FP) PO SCH (22:02)
[2019-07-05] MEDS: LATANOPROST 0.005% OPHTH SOLN 2.5ML BOTTLE OU SCH (22:06)
--- NOTE | 2019-07-05 23:52 | EKG ---
Test Reason : Blood Pressure : / mmHG Vent. Rate : 094 BPM Atrial Rate : 094 BPM P-R Int : 200 ms QRS Dur : 090 ms QT Int : 354 ms P-R-T Axes : 041 -35 056 degrees QTc Int : 442 ms NORMAL SINUS RHYTHM LEFT AXIS DEVIATION ABNORMAL ECG WHEN COMPARED WITH ECG OF 17-OCT-2018 14:20, NONSPECIFIC T WAVE ABNORMALITY NO LONGER EVIDENT IN INFERIOR LEADS Confirmed by MAX VAIL, QUITA ([id number]) on 07/05/2019 11:52:07 PM Referred By: Confirmed By:QUITA SANTANA MD
[2019-07-06] MEDS: ACETAMINOPHEN 325 MG TABLET (FP) PO SCH ×3 (00:24→14:27)
[2019-07-06] MEDS: SODIUM CHLORIDE 1,000 ML IV SCH ×2 (03:15→11:02)
[2019-07-06] MEDS: LEVOTHYROXINE NA 75 MCG TABLET (FP) PO SCH (06:08)
[2019-07-06] MEDS: MAGNESIUM OXIDE 400 MG TABLET (FP) PO SCH ×2 (06:08→14:27)
[2019-07-06 07:36] LABS: BLOOD UREA NITROGEN 13.7 mg/dL (7-18); CALCIUM 8.4 mg/dL (8.5-10.1); CREATININE 0.9 mg/dL (0.55-1.3); POTASSIUM 3.8 mmol/L (3.5-5.1)
[2019-07-06 07:43] LABS: BASO % 0.7 % (0-2.0); EOS % 2.6 % (0-4.5); HEMOGLOBIN 10.9 GM/dL (11.7-16.9); LYMPH % 14.4 % (8-40); MCH 30.2 pg (25.7-33.7); MCHC 33.2 g/dl (32.0-35.9); MEAN CELL VOLUME 91.1 fl (80-96); MEAN PLT VOLUME 8.5 fl (7.5-11.1); MONO % 6.8 % (3.8-10.2); NEUT % 75.5 % (42.8-82.8); PLATELET COUNT 165 K/MM3 (134-434); RBC 3.62 M/mm3 (4.00-5.60); RDW 13.6 % (11.9-15.9); WHITE BLOOD COUNT 4.9 K/mm3 (4.0-10.0)
[2019-07-06 07:54] VITALS: TEMP 98
--- NOTE | 2019-07-06 10:49 | PN ---
Progress Note, Physician History of Present Illness: pumonary alert,oob-chair,-sob,less cough,-hemoptysis - Current Medication List Current Medications: Active Medications Acetaminophen (Tylenol -) 650 mg PO Q6HPO [facility] Last Admin: 07/06/19 06:08 Dose: 650 mg Atorvastatin Calcium (Lipitor -) 20 mg PO HS [facility] Last Admin: 07/05/19 22:02 Dose: 20 mg Brimonidine Tartrate (Alphagan 0.2% -) 1 drop OU BID [facility] Last Admin: 07/05/19 22:12 Dose: 1 drop Cholecalciferol (Vitamin D3 -) 1,000 unit PO DAILY [facility] Last Admin: 07/05/19 10:09 Dose: 1,000 unit Dorzolamide HCl (Trusopt 2%) 1 drop OU BID [facility] Last Admin: 07/05/19 22:06 Dose: 1 drop Fenofibric Acid (Trilipix -) 135 mg PO DAILY [facility] Last Admin: 07/05/19 10:09 Dose: 135 mg Sodium Chloride (Normal Saline -) 1,000 mls @ 75 mls/hr IV ASDIR [facility] Last Admin: 07/06/19 03:15 Dose: 75 mls/hr Ceftriaxone Sodium 1 gm/ (Dextrose) 50 mls @ 200 mls/hr IVPB Q24H [facility]; Protocol Last Admin: 07/05/19 18:28 Dose: 200 mls/hr Latanoprost (Xalatan 0.005% Eye Drops -) 1 drop OU HS [facility] Last Admin: 07/05/19 22:06 Dose: 1 drp Levothyroxine Sodium (Synthroid -) 150 mcg PO DAILY@0700 [facility] Last Admin: 07/06/19 06:08 Dose: 150 mcg Magnesium Oxide (Mag-Ox -) 800 mg PO TID [facility] Last Admin: 07/06/19 06:08 Dose: 800 mg Metoprolol Succinate (Toprol Xl -) 100 mg PO BID [facility] Last Admin: 07/05/19 22:02 Dose: 100 mg Multivitamins/Minerals/Vitamin C (Tab-A-Vit -) 1 tab PO DAILY [facility] Last Admin: 07/05/19 10:09 Dose: 1 tab Ahwes-4-Etqu Ethyl Esters (Lovaza -) 1 gm PO BID [facility] Last Admin: 07/05/19 22:02 Dose: 1 gm Rivaroxaban (Xarelto) 20 mg PO DAILY@1800 [facility] Last Admin: 07/05/19 18:28 Dose: 20 mg Timolol Maleate (Timoptic 0.5%) 1 drop OU BID [facility] Last Admin: 07/05/19 22:05 Dose: Not Given Zolpidem Tartrate (Ambien -) 5 mg PO HS PRN PRN Reason: INSOMNIA - Objective Vital Signs: Vital Signs Temperature 98 F 07/06/19 06:00 Pulse Rate 53 L 07/06/19 06:00 Respiratory Rate 18 07/06/19 09:00 Blood Pressure 155/87 07/06/19 06:00 O2 Sat by Pulse Oximetry (%) 98 07/06/19 09:00 Constitutional: Yes: Well Nourished, Calm Eyes: Yes: WNL HENT: Yes: WNL Neck: Yes: WNL Cardiovascular: Yes: Pulse Irregular, S1, S2 Respiratory: Yes: Rales (few crackles r base) Gastrointestinal: Yes: Normal Bowel Sounds, Soft Extremities: Yes: WNL Edema: No Labs: CBC, BMP 07/06/19 06:45 07/06/19 06:45 INR, PTT INR 1.29 (0.83-1.09) H 07/04/19 07:00 - ....Imaging Cat Scan: Report Reviewed, Image Reviewed Assessment/Plan Problem List - Problems (1) Fever Code(s): R50.9 - FEVER, UNSPECIFIED Qualifiers: Fever type: unspecified Qualified Code(s): R50.9 - Fever, unspecified (2) Hemoptysis Code(s): R04.2 - HEMOPTYSIS (3) Pneumonia Code(s): J18.9 - PNEUMONIA, UNSPECIFIED ORGANISM Qualifiers: Pneumonia type: due to unspecified organism Laterality: unspecified laterality Lung location: unspecified part of lung Qualified Code(s): J18.9 - Pneumonia, unspecified organism (4) Atrial fibrillation Code(s): I48.91 - UNSPECIFIED ATRIAL FIBRILLATION Qualifiers: Atrial fibrillation type: paroxysmal Qualified Code(s): I48.0 - Paroxysmal atrial fibrillation (5) CHF (congestive heart failure) Code(s): I50.9 - HEART FAILURE, UNSPECIFIED Qualifiers: Heart failure type: diastolic Heart failure chronicity: chronic Qualified Code(s): I50.32 - Chronic diastolic (congestive) heart failure (6) HTN (hypertension) Code(s): I10 - ESSENTIAL (PRIMARY) HYPERTENSION Qualifiers: Hypertension type: essential hypertension Qualified Code(s): I10 - Essential (primary) hypertension Assessment/Plan RLL ,RMLPNEUMONIA HEMOPTYSIS AFIB CHF ABX PER ID F/U CHESTS CT 4-6 TO CONFIRM RESOLUTION OF INFILTRATES O2 SUPPLEMENTATION CONTINUE HOME MEDS DR BRAYDEN OWEN
[2019-07-06] MEDS ORDERED: PT OWN MED DRAWER 7, Y5N ONE (10:52)
[2019-07-06] MEDS: AZITHROMYCIN IVPB 500 MG/250 ML BAG IVPB SCH (10:57)
[2019-07-06] MEDS: BRIMONIDINE TARTRATE 0.2% OPHTHALMIC 5 ML BOTTLE OU SCH (11:00)
[2019-07-06] MEDS: DORZOLAMIDE 2% HCL OPHTHALMIC SOLUTION 10 ML BOTTLE OU SCH (11:00)
[2019-07-06] MEDS: FENOFIBRIC ACID 135 MG CAP PO SCH (11:01)
[2019-07-06] MEDS: MULTIVITAMINS (DAILY MVI) TABLET (FP) PO SCH (11:02)
[2019-07-06] MEDS: OMEGA-3 ACID ETHYL ESTERS (FATTY-ACIDS) 1 GM CAPSULE (FP) PO SCH (11:02)
[2019-07-06] MEDS: CHOLECALCIFEROL (VIT D3) 1,000 UNIT (25 MCG) TABLET PO SCH (11:02)
[2019-07-06] MEDS: TIMOLOL 0.5% OPHTHALMIC SOL 5 ML BOTTLE OU SCH (11:03)
[2019-07-06 11:08] VITALS: BP 178/92; PULSE 55
--- NOTE | 2019-07-06 13:00 | PN ---
Progress Note (short form) - Note Progress Note: doing well, no hemooptysis, no fevers since admission Vital Signs Period Temp Pulse Resp BP Sys/Valenzuela Pulse Ox Last 24 Hr 97.8 F-98.7 F 53-59 18-18 122-178/84-92 98 cor-rrr lungs decreased bs at right bases abd soft,nt ext no edema CBC, BMP 07/06/19 06:45 07/06/19 06:45 Microbiology 07/04/19 11:00 Sputum - Expectorated Gram Stain - Final 07/04/19 11:00 Sputum - Expectorated Sputum Culture - Final Yeast Like Organism 07/03/19 18:05 Blood - Peripheral Venous Blood Culture - Preliminary NO GROWTH OBTAINED AFTER 48 HOURS, INCUBATION TO CONTINUE FOR 3 DAYS. 07/03/19 18:00 Blood - Peripheral Venous Blood Culture - Preliminary NO GROWTH OBTAINED AFTER 48 HOURS, INCUBATION TO CONTINUE FOR 3 DAYS. 07/03/19 22:10 Urine - Urine Clean Catch Urine Culture - Final NO GROWTH OBTAINED 07/04/19 07:30 Urine For Antigen Detection Legionella Antigen - Final 07/04/19 07:30 Urine For Antigen Detection Streptococcus pneumoniae Antigen (M - Final chest ct with rll/rml infiltrate imp/reccd RLL /RML pneumonia-CAP- rocephin/zithromax day #4 d/w dr gallegos d/w hospitalist for d/c home today on po ceftin to complete 7 days hemoptysis- most likely due to CAP afib on eliquis d/w patient and at bedside Problem List - Problems (1) Pneumonia Code(s): J18.9 - PNEUMONIA, UNSPECIFIED ORGANISM Qualifiers: Pneumonia type: due to unspecified organism Laterality: unspecified laterality Lung location: unspecified part of lung Qualified Code(s): J18.9 - Pneumonia, unspecified organism (2) Hemoptysis Code(s): R04.2 - HEMOPTYSIS (3) Atrial fibrillation Code(s): I48.91 - UNSPECIFIED ATRIAL FIBRILLATION Qualifiers: Atrial fibrillation type: paroxysmal Qualified Code(s): I48.0 - Paroxysmal atrial fibrillation
--- NOTE | 2019-07-06 13:35 | PN ---
Progress Note (short form) - Note Progress Note: Subjective: no fever or chills. has no Abd pain, nO CP , no SOB. no diarrhea Objective: Vital Signs: Last Vital Signs Temp Pulse Resp BP Pulse Ox 98 F 55 L 18 178/92 H 98 07/06/19 11:07 07/06/19 11:07 07/06/19 11:07 07/06/19 11:07 07/06/19 09:00 Laboratory Results - last 24 hr 07/06/19 07/06/19 06:45 06:45 WBC 4.9 RBC 3.62 L Hgb 10.9 L Hct 33.0 L MCV 91.1 MCH 30.2 MCHC 33.2 RDW 13.6 Plt Count 165 MPV 8.5 Absolute Neuts (auto) 3.7 Neutrophils % 75.5 Lymphocytes % 14.4 D Monocytes % 6.8 Eosinophils % 2.6 Basophils % 0.7 Nucleated RBC % 0 Sodium 140 Potassium 3.8 Chloride 111 H Carbon Dioxide 23 Anion Gap 6 L BUN 13.7 Creatinine 0.9 Est GFR (CKD-EPI)AfAm 97.17 Est GFR (CKD-EPI)NonAf 83.84 Random Glucose 96 Calcium 8.4 L Physical Exam: NAD. HEENT: MMM, no facial droop CV: RRR, no MRG Lungs: CTAB Ext: No edema or erythema, dry skin ASSESSMENT AND PLAN: 73 y/o man with h/o laryngeal cancer, diastolic CHF, s/p endoscopic resection , [place] cell ca. (s/p Rx/excision, and lymph node dissection ), recent PNA 11/02 , ascending aortic aneurysm, hypothyroisidm, BPH, HTN, HLP, CAD, A fib, IgA deficiency and other medical problems who presented with fever and hemoptysis and was found to have RLL PNA 1- RLL CAP: - day 3 of azithro and ceftriaxone - d/w ID , will dc on ceftin x 4 more days and one dose of azithromycin - blood cx NGTD 2- h/o A fib, - cont toprol - xarelto 3- HTN: toprol 4- H/o D CHF: no signs of fluid overload. not on lasix at home DC home . f/u with pulm and PCP . ? need repeat Ct or bronch as out pt as PNA happened in same place x 2 Visit type - Emergency Visit Emergency Visit: Yes ED Registration Date: 07/03/19 Care time: The patient presented to the Emergency Department on the above date and was hospitalized for further evaluation of their emergent condition. - New Patient This patient is new to me today: No - Critical Care Critical Care patient: No - Discharge Referral Referred to [facility] Med P.C.: No
--- NOTE | 2019-07-07 20:31 | DS ---
Physical Exam: SUBJECTIVE: Patient seen and examined. Pt was comfortable in no acute distress with no complaints OBJECTIVE: PHYSICAL EXAM GENERAL: The patient is awake, alert, and fully oriented, in no acute distress. HEAD: Normal with no signs of trauma. EYES: PERRL, extraocular movements intact, sclera anicteric, conjunctiva clear. No ptosis. ENT: oropharynx clear without exudates, moist mucous membranes LUNGS: Breath sounds equal, clear to auscultation bilaterally, no wheezes, no crackles, no accessory muscle use. HEART: Regular rate and rhythm, S1, S2 without murmur, rub or gallop. ABDOMEN: Soft, nontender, nondistended, normoactive bowel sounds, no guarding, no rebound, no hepatosplenomegaly, no masses. EXTREMITIES: 2+ pulses, warm, well-perfused, no edema. SKIN: Warm, dry, normal turgor, actinic keratosis all over body LABS CBC,CMP WBC 4.9 K/mm3 (4.0-10.0) 07/06/19 06:45 RBC 3.62 M/mm3 (4.00-5.60) L 07/06/19 06:45 Hgb 10.9 GM/dL (11.7-16.9) L 07/06/19 06:45 Hct 33.0 % (35.4-49) L 07/06/19 06:45 MCV 91.1 fl (80-96) 07/06/19 06:45 MCH 30.2 pg (25.7-33.7) 07/06/19 06:45 MCHC 33.2 g/dl (32.0-35.9) 07/06/19 06:45 RDW 13.6 % (11.9-15.9) 07/06/19 06:45 Plt Count 165 K/MM3 (134-434) 07/06/19 06:45 MPV 8.5 fl (7.5-11.1) 07/06/19 06:45 Absolute Neuts (auto) 3.7 K/mm3 (1.5-8.0) 07/06/19 06:45 Neutrophils % 75.5 % (42.8-82.8) 07/06/19 06:45 Lymphocytes % 14.4 % (8-40) D 07/06/19 06:45 Monocytes % 6.8 % (3.8-10.2) 07/06/19 06:45 Eosinophils % 2.6 % (0-4.5) 07/06/19 06:45 Basophils % 0.7 % (0-2.0) 07/06/19 06:45 Nucleated RBC % 0 % (0-0) 07/06/19 06:45 Sodium 140 mmol/L (136-145) 07/06/19 06:45 Potassium 3.8 mmol/L (3.5-5.1) 07/06/19 06:45 Chloride 111 mmol/L (98-107) H 07/06/19 06:45 Carbon Dioxide 23 mmol/L (21-32) 07/06/19 06:45 Anion Gap 6 MMOL/L (8-16) L 07/06/19 06:45 BUN 13.7 mg/dL (7-18) 07/06/19 06:45 Creatinine 0.9 mg/dL (0.55-1.3) 07/06/19 06:45 Est GFR (CKD-EPI)AfAm 97.17 07/06/19 06:45 Est GFR (CKD-EPI)NonAf 83.84 07/06/19 06:45 Random Glucose 96 mg/dL (74-106) 07/06/19 06:45 Lactic Acid 1.5 mmol/L (0.4-2.0) 07/03/19 22:05 Calcium 8.4 mg/dL (8.5-10.1) L 07/06/19 06:45 Magnesium 1.5 mg/dL (1.8-2.4) L 07/04/19 07:00 Total Bilirubin 0.8 mg/dL (0.2-1) 07/04/19 07:00 AST 14 U/L (15-37) L 07/04/19 07:00 ALT 14 U/L (13-61) 07/04/19 07:00 Alkaline Phosphatase 40 U/L (45-117) L 07/04/19 07:00 Troponin I < 0.02 ng/ml (0.00-0.05) 07/03/19 18:00 Total Protein 5.4 g/dl (6.4-8.2) L 07/04/19 07:00 Albumin 2.7 g/dl (3.4-5.0) L 07/04/19 07:00 TSH 2.67 uIU/ml (0.358-3.74) 07/04/19 07:00 CXR 07/03/19 New right base infiltrate/atelectasis Chest CT 07/05/19 Right middle and right lower lobe pneumonia as well as minimal atelectatic changes in the left lung base. There is no evidence of a pneumothorax or pleural effusion, bilaterally. Follow-up is needed. Bilateral renal cysts for which evaluation with renal ultrasound is needed to further assess that consistency HOSPITAL COURSE: Date of Admission:07/03/19 73 year old male with a past medical history of esophageal cancer (s/p endoscopic resection), [place] cell CA on face (s/p excision/radiation/lymph node dissection), hypertension, hyperlipidemia, CAD, dCHF, afib on Xarelto, ascending aortic aneurysm, hypothyroid, BPH, hx of RLL nodules who presents with a one day history of hemoptosis and chills. In the ED, pt was found febrile to 102.6, tachy to 101 with a CXR with infiltrate noted in the RLL. pt was diagnosed with PNA and given ceftriaxone and azithromycin. Xarelto was held until hemoptosis resolved to decrease risk of severe bleeding. Pulm saw patient due to hemoptosis and recurrent PNA (last one in Oct 2018 with same presentation ). Per pulm, hemoptosis was most likely due to PNA and that he would f/u as outpatient for more evaluation of his recurrent PNAs and respiratory panel results.As symptoms improved and hemoptosis resolved, pt's xarelto was resumed and pt discharged on 4 days of ceftin and 1 day of azythromycin to complete treatment. pt is to follow up with his PCP. Date of Discharge: 07/07/19 Minutes to complete discharge: 35 Discharge Summary Reason For Visit: FEVER,HEMOPTYSIS,PNEUMONIA Condition: Improved - Instructions Diet, Activity, Other Instructions: you were treated for pneumonia in your right lung. - please take ceftin every 12 hours , starting tomorrow aM , for 4 dyas - take one dose of azithromycin tomorrow am . - continue all your home meds, no changes were made. - please follow with Dr. Vera for further investigations, as you might need a repeat CT of your chest or even bronchoscopy ( he will decide) - call MD or come back to ER if you have rash, fever, chills, difficulty breathing or any other new symptoms Good luck Referrals: Matheus Vera MD [Staff Physician] - Vega Thornton MD [Primary Care Provider] - 1 Week Disposition: HOME - Home Medications Comprehensive Discharge Medication List: Ambulatory Orders Ca/D3/Mag Ox/Zinc/Neighborhood Aide/Kartik/Bor [Caltrate 600+D Plus Tab Chew] 1 each PO ASDIR Cholecalciferol (Vitamin D3) [Vitamin D3] 1,000 unit PO DAILY 03/13/14 Fenofibrate 160 mg PO DAILY 03/13/14 Multivit-Min/FA/Lycopene/Lut [Centrum Silver Tablet] 1 each PO ASDIR 03/13/14 Omeprazole [Prilosec (RX)] 20 mg PO BID 03/13/14 Rivaroxaban [Xarelto -] 20 mg PO DAILY 03/13/14 Zolpidem Tartrate 10 mg PO ASDIR 03/13/14 Levothyroxine [Synthroid -] 150 mcg PO DAILY 10/17/18 Metoprolol Succinate [Toprol Xl] 100 mg PO BID 10/17/18 Acetaminophen [Tylenol Arthritis] 650 mg PO TID 07/03/19 Atorvastatin Ca [Lipitor] 20 mg PO HS 07/03/19 Brimonidine Tartrate/Timolol [Combigan 0.2%-0.5% Eye Drops] 1 drop OU BID Brinzolamide [Azopt] 1 drop OU BID 07/03/19 Icosapent Ethyl [Vascepa] 1 gm PO BID 07/03/19 Latanoprost/Pf [Latanoprost 0.005% Eye Drop] 1 drop OU HS 07/03/19 Magnesium Oxide [Magnesium] 800 mg PO TID 07/03/19 Azithromycin [Zithromax] 500 mg PO DAILY #1 tablet 07/06/19 Cefuroxime Axetil [Ceftin -] 500 mg PO Q12H #8 tablet 07/06/19 Problem List - Problems (1) Atrial fibrillation Code(s): I48.91 - UNSPECIFIED ATRIAL FIBRILLATION Qualifiers: Atrial fibrillation type: paroxysmal Qualified Code(s): I48.0 - Paroxysmal atrial fibrillation (2) CHF (congestive heart failure) Code(s): I50.9 - HEART FAILURE, UNSPECIFIED Qualifiers: Heart failure type: diastolic Heart failure chronicity: chronic Qualified Code(s): I50.32 - Chronic diastolic (congestive) heart failure (3) Fever Code(s): R50.9 - FEVER, UNSPECIFIED Qualifiers: Fever type: unspecified Qualified Code(s): R50.9 - Fever, unspecified (4) HTN (hypertension) Code(s): I10 - ESSENTIAL (PRIMARY) HYPERTENSION Qualifiers: Hypertension type: essential hypertension Qualified Code(s): I10 - Essential (primary) hypertension (5) Hemoptysis Code(s): R04.2 - HEMOPTYSIS (6) History of aortic aneurysm Code(s): Z86.79 - PERSONAL HISTORY OF OTHER DISEASES OF THE CIRCULATORY SYSTEM (7) Hypokalemia Code(s): E87.6 - HYPOKALEMIA (8) Hypothyroid Code(s): E03.9 - HYPOTHYROIDISM, UNSPECIFIED This patient is new to me today: No Emergency Visit: Yes ED Registration Date: 07/03/19 Care time: The patient presented to the Emergency Department on the above date and was hospitalized for further evaluation of their emergent condition. Critical Care patient: No - Discharge Referral Referred to [facility] Med P.C.: No ATTENDING PHYSICIAN STATEMENT I saw and evaluated the patient. I reviewed the resident's note and discussed the case with the resident. I agree with the resident's findings and plan as documented. SUBJECTIVE: OBJECTIVE: ASSESSMENT AND PLAN:
== END 2019-07-06 14:28 | disposition home or self-care (01) | DRG 194 ==
LOC: JER 16:51 → JERBED 20:11 → J5S 07-04 13:38
PROVIDERS: ADMIT Internal Medicine; ATTEND Internal Medicine
DX: J18.9 Pneumonia, unspecified organism (principal); R04.2 Hemoptysis; N17.9 Acute kidney failure, unspecified; I50.30 Unspecified diastolic (congestive) heart failure; E78.00 Pure hypercholesterolemia, unspecified; I25.10 Atherosclerotic heart disease of native coronary artery without angina pectoris; I48.0 Paroxysmal atrial fibrillation; N40.0 Benign prostatic hyperplasia without lower urinary tract symptoms; E03.9 Hypothyroidism, unspecified; R91.1 Solitary pulmonary nodule; I71.2 Thoracic aortic aneurysm, without rupture; R50.9 Fever, unspecified; R00.0 Tachycardia, unspecified; H40.9 Unspecified glaucoma; I11.0 Hypertensive heart disease with heart failure; F41.9 Anxiety disorder, unspecified; M54.5 Low back pain; Z85.01 Personal history of malignant neoplasm of esophagus; Z85.821 Personal history of Merkel cell carcinoma
CPT/HCPCS: 36415; 71045-TC-FY; 71250-TC; 80048; 80053; 81003; 82803; 83605; 83735; 84443; 84484; 85025; 85610; 85730; 87040; 87070; 87077; 87086; 87205; 87633; 87899; 93005; 93010; 97116-GP; 97161-GP; 99285-25; J0131; J7030

== ENCOUNTER 2021-04-20 09:03 | Day surgery (SDC) | payer OTHER, BC ==
[2021-04-19 13:20] VITALS: BMI 30.4
[2021-04-20] MEDS: CIPROFLOXACIN 0.3% EYE DROPS 5 ML BOTTLE ONE ×3 (09:35→09:45)
[2021-04-20] MEDS: TROPICAMIDE 1% OPHTH SOLN 15 ML BOTTLE ONE ×3 (09:35→09:45)
[2021-04-20] MEDS: CYCLOPENTOLATE 2% OPHTH SOLN 2 ML BOTTLE ONE ×3 (09:35→09:45)
[2021-04-20] MEDS: PHENYLEPHRINE 2.5% OPHTH SOLN 15 ML BOTTLE ONE ×3 (09:35→09:45)
[2021-04-20] MEDS ORDERED: BSS (NA/CA/MG/K) BALANCED SALT SOLUTION OPHTH SOLN 15 ML BOTTLE ONE (10:13)
[2021-04-20] MEDS ORDERED: NEO/POLYMYX B SULF/DEXAMETH OPHTHALMIC 5ML BOTTLE ONE (10:14)
[2021-04-20] MEDS ORDERED: EPINEPHrine/PF 1 MG/1 ML (1:1,000) AMPULE ONE (10:48)
[2021-04-20] MEDS ORDERED: MIDAZOLAM HCL 2 MG/2 ML SINGLE DOSE VIAL ONE (10:53)
[2021-04-20 11:46] VITALS: TEMP 98.1
[2021-04-20 12:26] VITALS: BP 107/57; PULSE 68
== END 2021-04-20 12:25 | disposition home or self-care (01) ==
LOC: FASU 09:03
PROVIDERS: ATTEND Ophthalmology
PROC: 08RJ3JZ Replacement of Right Lens with Synthetic Substitute, Percutaneous Approach (ICD-10-PCS; principal; 2021-04-20 11:09)
DX: H26.8 Other specified cataract (principal)

== ENCOUNTER 2021-06-08 06:52 | Day surgery (SDC) | payer OTHER, BC ==
[2021-06-06 10:29] VITALS: BMI 30.4
[2021-06-08] MEDS ORDERED: LIDOCAINE 1% P/F 10 MG/ML VIAL ONE (07:10)
[2021-06-08] MEDS ORDERED: CARBACHOL 0.01% INTRA-OCULAR 1.5 ML VIAL ONE (07:10)
[2021-06-08] MEDS ORDERED: NEO/POLYMYX B SULF/DEXAMETH OPHTHALMIC 5ML BOTTLE ONE (07:10)
[2021-06-08] MEDS ORDERED: TETRACAINE 0.5% OPHTH SOLN 2 ML BOTTLE ONE (07:10)
[2021-06-08] MEDS ORDERED: BSS (NA/CA/MG/K) BALANCED SALT SOLUTION OPHTH SOLN 15 ML BOTTLE ONE (07:10)
[2021-06-08 07:59] VITALS: TEMP 97.8
[2021-06-08] MEDS: CYCLOPENTOLATE 2% OPHTH SOLN 2 ML BOTTLE ONE ×3 (08:45→08:55)
[2021-06-08] MEDS: CIPROFLOXACIN 0.3% EYE DROPS 5 ML BOTTLE ONE ×3 (08:45→08:55)
[2021-06-08] MEDS: PHENYLEPHRINE 2.5% OPHTH SOLN 15 ML BOTTLE ONE ×3 (08:45→08:55)
[2021-06-08] MEDS: TROPICAMIDE 1% OPHTH SOLN 15 ML BOTTLE ONE ×3 (08:45→08:55)
[2021-06-08] MEDS ORDERED: MIDAZOLAM HCL 2 MG/2 ML SINGLE DOSE VIAL ONE (09:06)
[2021-06-08 12:28] VITALS: BP 112/72; PULSE 78
== END 2021-06-08 10:15 | disposition home or self-care (01) ==
LOC: FASU 06:52
PROVIDERS: ATTEND Ophthalmology
PROC: 08RK3JZ Replacement of Left Lens with Synthetic Substitute, Percutaneous Approach (ICD-10-PCS; principal; 2021-06-08 09:09)
DX: H26.8 Other specified cataract (principal)